=== PATIENT | male | born 1950 | race Caucasian/White ===

== ENCOUNTER 2022-04-30 11:20 | Emergency (ER) | payer OTHER ==
--- OUTSIDE RECORDS SUMMARY | 2022-04-30 11:34 | XMS REPORT | Clinical Summary ---
:1950 Author Organization [facility] MD [place] [facility] Address [address] [place] [address] Care Team Providers Name Role Phone Mateo Escalona MD Unavailable [phone] Pa Jaffe MD Primary Care Provider Allergies Active Allergy Reactions Severity Noted Date Comments Adhesive Other (See Comments) 02/03/2017 Rash wi th latex adhesives but OK with latex g loves. Medications Medication Sig Dispensed Refills Start Date End Date Status omeprazole (PriLOSEC) 20 Take 20 mg by 0 Active mg capsule mouth daily. omega-3 fatty acids 1,000 Take 1,000 0 Active mg cap Units by mouth daily. losartan (COZAAR) 100 mg Take 100 mg by 0 12/09/2016 Active tablet mouth daily. hydroCHLOROthiazide Take 25 mg by 0 12/05/2016 Active (HYDRODIURIL) 25 mg tablet mouth daily. gemfibrozil (LOPID) 600 mg Take 600 mg by 0 03/16/19 20 Active tablet mouth daily. cetirizine (ZyrTEC) 10 mg Take 10 mg by 0 Active tablet mouth daily. carvedilol (COREG) 6.25 mg Take 6.25 mg 0 01/17/2017 Active tablet by mouth twice daily. atorvastatin (LIPITOR) 40 Take 40 mg by 0 12/30/2016 Active mg tablet mouth daily. aspirin 81 mg chewable Chew 81 mg 0 Active tablet daily. b complex vitamins tablet Take 1 tablet 0 Active by mouth daily. blood-glucose meter Use to check 1 each 1 05/22/2019 Active kitIndications: Diabetes blood glucose mellitus without mention as directed. 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 Additional Information Patient not taking. Reason: No longer taking, Reported on 09/01/2021 HYDROcodone-acetaminophen ([place]) Take 1 tablet by 45 tablet 0 02/15/2020 Active 10 mg-325 mg per mouth every 6 tabletIndications: Giant cell (six) hours as tumor of long bone of upper limb needed for moderate pain or severe pain. cyclobenzaprine (FLEXERIL) 10 mg 0 021 Active tablet traMADol (ULTRAM) 50 mg tablet Take 50 mg by 0 05/06 Active mouth. metFORMIN (GLUCOPHAGE-XR) 500 mg Take 2 tablets 360 tablet 3 0 05/27/2020 Active 24 hr tabletIndications: Diabetes (1,000 mg) by mellitus without mention of mouth 2 (two) complication, type II or times a day with unspecified type, uncontrolled meals. glipiZIDE (GLUCOTROL) 5 mg 24 hr 0 021 Active tablet blood sugar diagnostic (Contour USE TO CHECK 100 strip 10/16 Active Next Test Strips) strpIndications: BLOOD GLUCOSE TWO Diabetes mellitus without mention TIMES A DAY of complication, type II or BEFORE YOUR 2 unspecified type, uncontrolled LARGEST MEALS lancets (Microlet Lancet) USE TO CHECK 100 each 10/16/2020 Active miscIndications: Diabetes mellitus BLOOD GLUCOSE TWO without mention of complication, TIMES A DAY type II or unspecified type, BEFORE YOUR 2 uncontrolled LARGEST MEALS traMADol (ULTRAM) 50 mg Take 1 tablet (50 30 tablet 0 04/09/19 22 Active tabletIndications: Fracture of mg) by mouth distal end of right radius every 4 (four) <Closed; Initial> hours as needed for moderate pain or severe pain. HYDROcodone-acetaminophen ([place]) Take 1 tablet by 60 tablet 0 04/09/2021 Active 10 mg-325 mg per mouth every 6 tabletIndications: Giant cell (six) hours as tumor of long bone of upper limb needed for moderate pain or severe pain. co-enzyme Q-10 30 mg capsule Take 30 mg by 0 Active mouth daily. gabapentin (NEURONTIN) 600 mg Take 600 mg by 0 11/13 Active tablet mouth twice daily. 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 01/08 Overview: Added automatically from request for stefani franco [id number] Hypertension 05/22/2019 Abnormal finding on diagnostic imaging of arm 05/11/19 20 Other acute postoperative pain Encounters Date Type Specialty Care Team Description 12/15/2021 Office Visit Orthopaedics Pa Jaffe MD Benign neopl asm of long bone of right u pper limb 12/15/2021 Ancillary Procedure Radiology Pa Jaffe MD Benig n neoplasm of long bone of right u pper limb 12/15/2021 Travel 09/01/2021 Office Visit Orthopaedics Pa Jaffe MD Benign neopl asm of long bone of right u pper limb 09/01/2021 Ancillary Procedure Radiology Pa Jaffe MD Benig n neoplasm of long bone of right u pper limb 09/01/2021 Travel 06/02/2021 Office Visit Orthopaedics Pa Jaffe MD Benign neopl asm of long bone of right u pper limb 06/02/2021 Ancillary Procedure Radiology Mateo Marquez Beni gn neoplasm of long PA bone of right u pper limb 06/02/2021 Travel 05/01/2021 Telephone Orthopaedics Mateo Marquez PA after 04/30/2021 Surgical History Surgery Date Site/Laterality Comments APPENDECTOMY 03/07/2019 - 03/06/2020 COLONOSCOPY 03/07/2011 - 03/06/2012 HERNIA REPAIR 03/07/1953 - [birth year]06/1953 HIP ARTHROPLASTY 03/07/2006 - 03/06/2007 KNEE ARTHROPLASTY 03/07/2011 - 03/06/2012 CARDIAC CATHETERIZATION 03/07/2007 - 03/06/2008 DC RADICAL RESECTION TUMOR 02/06/2020 Arm Upper/Right Proce dure: RADICAL RADIUS OR ULNA RESECTION OF MATT OR, DISTAL RADIUS WI TH DISTAL RADIUS AL LOGRAFT RECONSTRUCTION; Surgeon: Pa Jaffe MD; Location: MAIN [facility]; Service: [facility] Medical devices from this surgery are in the Medical Devices section. DC FLUOROSCOPY UP TO 1 HOUR 02/06/2020 Arm Upper/Right Proc edure: PORTABLE PHYSICIAN/QHP TIME FLOUROSCOPY ( C-ARM); Surgeon: Pa loya MD; Location: MAIN O R; Service: [facility]COLOGY Medical devices from this surgery are in the Medical Devices section. JOINT REPLACEMENT Right hip JOINT REPLACEMENT Left knee DC REMOVAL IMPLANT DEEP 04/08/2021 Arm Lower/Right Procedur e: REMOVAL OF IMPLANT; DEEP, R IGHT DISTAL RADIUS PL ATE; Surgeon: Pa loya MD; Location: MAIN O R; Service: [facility]COL[facility] Medical devices from this surgery are in the Medical Devices section. DC OPEN TREATMENT RADIAL 04/08/2021 Arm Lower/Right Procedu re: OPEN SHAFT FRACTURE REDUCTION OF FRA CTURE OF SHAFT OF RADIUS, INCLUDES INTERNA L FIXATION, WHEN PERFORMED- PLATI NG OF RIGHT DISTAL RAD IUS- BONE GRAFTING OF NON-UNION OF RAD IUS; Surgeon: Pa loya MD; Location: MAIN O R; Service: [facility]COL[facility]Y Medical devices from this surgery are in the Medical Devices section. DC FLUOROSCOPY UP TO 1 HOUR 04/08/2021 Arm Lower/Right Proc edure: PORTABLE PHYSICIAN/QHP TIME FLOUROSCOPY ( C-ARM); Surgeon: Pa loya MD; Location: MAIN O R; Service: [facility]COL[facility]Y Medical devices from this surgery are in the Medical Devices section. 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 01/09/2020 Type 2 diabetes mellitus Family History Medical History Relation Name Comments Stroke Mother Coronary artery disease Neg Hx Diabetes Neg Hx Heart disease Neg Hx Heart failure Neg Hx Relation Name Status Comments Mother Social History Tobacco Use Types Packs/Day Years Used Date Smoking Tobacco: Former Cigarettes 1 10 Quit : 1999 Smokeless Tobacco: Former Qu it: 12/24/2008 Alcohol Use Standard Drinks/Week Comments Yes 51 (1 standard drink = 0.6 oz pure alcoh ol) HAS ABOUT 5 DRINKS PER DAY Sex Assigned at Date Recorded Not on file Job Start Date Occupation Industry Not on file Not on file Not on file Obstetrics History Last Filed Vital Signs Vital Sign Reading Time Taken Comments Blood Pressure 147/68 12/15/2021 10:11 AM CDT Pulse 58 12/15/2021 10:11 AM CDT Temperature 37 C (98.6 F) 12/15/2021 10:11 AM CDT Respiratory Rate 20 12/15/2021 10:11 AM CDT Oxygen Saturation 97% 09/01/2021 9:29 AM CDT Inhaled Oxygen Concentration - - Weight 134.6 kg (296 lb 11.8 oz) 12/15/2021 10:11 AM CDT Height - - Body Mass Index 42.01 04/08/2021 9:52 PM [employer] Plan of Treatment Date Type Specialty Care Team Description 05/18/2022 Ancillary Procedure Radiology Pa Jaffe MD [address] [place], [place] [address] (Wo rk) 05/18/2022 Ancillary Procedure Radiology Pa Jaffe MD [address] [place], [place] [address] (Wo rk) 05/18/2022 Follow-Up Orthopaedics Pa Jaffe MD [address] [place], [place] [address] (Wo rk) Health Maintenance Due Date Last Done Comments COVID-19 Vaccination (3 - Booster for 07/05/2020 05/10/2020 , 04/12/2020 Moderna series) Medical Devices Implanted Type Area Gas Refrigerator Servicer Device Shelf Model / Serial Identifier Expiration / Lot Date Screw 18mm Bn 3.5mm 2.9mm T15 - [id number] Implant Right: DEPUY S YNTHES [id number] / Implanted: Qty: 1 on 02/06/2020 by Pa Jaffe MD at [facility] voxapp / NA Synthes 3.5mm Lcp Metaphyseal Plte 14h 190mm Implant Right: SYNTH [employer] [place] [id number] / Implanted: Qty: 1 on 04/08/2021 by Pa Jaffe MD at [facility] Arm / Screw Sm Frag Toi Ss 3.5mm X 24mm - [id number] Metalware Right: SY NTHES [employer] 204.824 / Implanted: Qty: 1 on 02/06/2020 by Pa Jaffe MD at [facility] Arm / Plate Lcp 6 Holes - [id number] Metalware Right: [employer] [place] 223.561 / Implanted: Qty: 1 on 04/08/2021 by Pa Jaffe MD at [facility] Arm / NA Mtf Radius Distal Right Oa Tissue Right: MUSCULOSKELETAL 04/18/2023 [id number] / Implanted: Qty: 1 on 02/06/2020 by Pa Jaffe MD at [facility] Arm TRANSPLANT FND [id number] / Description: [employer] Radius Distal Right OA Metal Left: Knee Procedures Procedure Name Priority Date/Time Associated Diagnosis Comme nts XR FOREARM 2 VW Routine 12/15/2021 10:19 AM Benign neoplasm of Results for this RIGHT CDT long bone of right procedure are in upper limb the results section. XR FOREARM 2 VW Routine 09/01/2021 9:27 AM Benign neoplasm of Results for this RIGHT CDT long bone of right procedure are in upper limb the results section. XR WRIST 3 VWS Routine 06/02/2021 12:31 PM Benign neoplasm of Results for this MINIMUM RIGHT CDT long bone of right procedur e are in upper limb the results section. after 04/30/2021 Results X-ray Forearm 2 Views Right (12/15/2021 10:19 AM CDT)Only the most recent of2 resultswithin the time period is included. Anatomical Region Laterality Modality Forearm, Extremity Digital Radiography Specimen (Source) Anatomical Collection Method Collection Time Re ceived Time Location / / Volume Laterality 12/15/2021 10:29 AM CDT Impressions 12/15/2021 10:35 AM CDT Expected appearance of right forearm fol lowing revision of intercalated allograft construction. No complication. Narrative 12/15/2021 10:35 AM CDT FULL RESULT: Examination: XR FOREARM 2 VW RIGHT, 12/05 10:19 AM. Clinical History: 71-year-old man with a distal right radial giant cell tumor treated with resection and osteoarticular allograft reconstruction February 06, 2020. Subsequent fracture of the compression plate April 07, 2021 with revision. Th e revision included refreshing the [place] bone/allograft junction by removing some bone, creating a distal ulnar osteotomy for appropriate accommodation forearm l ength, and placement of two compression plates, one plate dorsally from the mid radius, across the allograft, and terminating along the third metacarpal. The other plate is along the lateral side of the radius, bridging the [place] bone/allogr aft junction. Indication: evaluate R distal radius all ograft healing Comparison: Right forearm September 01, 2021 Technique: XR FOREARM 2 VW RIGHT Findings: 1. Status post revision of distal radial intercalated allograft reconstruction. See above history. 2. Tight junctions between the radial na tive bone and the allograft is maintained. 3. The metal plates are in expected posi tion and without complication. Procedure Note Varghese Ruiz Jr., MD - 12/15/2021F ormatting of this note might be different from the original. FULL RESULT: Examination: XR FOREARM 2 VW RIGHT, 12/05 10:19 AM. Clinical History: 71-year-old man with a distal right radial giant cell tumor treated with resection and osteoarticular allograft reconstruction February 06, 2020. Subsequent fracture of the compression plate April 07, 2021 with revision. The revision include d refreshing the [place] bone/allograft junction by removing some bone, creating a distal ulnar osteotomy for appropriate accommodation forearm length, and placement of two compression plates, one plate dorsal ly from the mid radius, across the allograft, and terminating along the third metacarpal. The other plate is along the lateral side of the radius, bridging the [place] bone/allograft junction. Indication: evaluate R distal radius all ograft healing Comparison: Right forearm September 01, 2021 Technique: XR FOREARM 2 VW RIGHT Findings: 1. Status post revision of distal radial intercalated allograft reconstruction. See above history. 2. Tight junctions between the radial na tive bone and the allograft is maintained. 3. The metal plates are in expected posi tion and without complication. IMPRESSION: Expected appearance of right forearm fol lowing revision of intercalated allograft construction. No complication. Pa Jaffe MD IM DIAGNOSTIC IMAGING ORDER ÁNGEL X-ray Wrist 3 Views Minimum Right (06/02/2021 12:31 PM CDT) Anatomical Region Laterality Modality Wrist, Extremity Digital Radiography Specimen (Source) Anatomical Collection Method Collection Time Re ceived Time Location / / Volume Laterality 06/02/2021 12:34 PM CDT Impressions 06/02/2021 12:37 PM CDT Interval stable revision of right wrist fixation. Interval stable oblique fracture of distal radius. Oblique distal ulna fracture without spe cific findings of early fracture bridging. Narrative 06/02/2021 12:37 PM CDT FULL RESULT: Examination: XR WRIST 3 VWS MINIMUM R[facility] T, 06/02/2021 12:31 PM. Clinical History: Giant cell tumor dista l radius. Indication: Restaging Disease Progressio n Comparison: 04/08/2021. Technique: Right wrist 3 views. Findings: Interval stable revision of th e dorsal plate fixation across the wrist joint is well as lateral plating of the distal radius unchanged.. Oblique distal radius fracture is stable with slight fo reshortening demonstrated suggesting of slight distraction of the fracture fragments distally with slight ulnar/lateral offset of the distal ulna fragment relative to the proximal radius demonstrated.. Distal radioulnar joint appears intact. Chronic degenerative changes identified at the carpal bones unchanged. No acute mechanical failure or displacement of fixation detected. Procedure Note Jose Luis Sands MD - 06/02/2021Forma tting of this note might be different from the original. FULL RESULT: Examination: XR WRIST 3 VWS MINIMUM [facility] T, 06/02/2021 12:31 PM. Clinical History: Giant cell tumor dista l radius. Indication: Restaging Disease Progressio n Comparison: 04/08/2021. Technique: Right wrist 3 views. Findings: Interval stable revision of th e dorsal plate fixation across the wrist joint is well as lateral plating of the distal radius unchanged.. Oblique distal radius fracture is stable with slight foreshortening demonstrated suggesting of slight distra ction of the fracture fragments distally with slight ulnar/lateral offset of the distal ulna fragment relative to the proximal radius demonstrated.. Distal radioulnar joint appears intact. Chronic degenerative brianne nges identified at the carpal bones unchanged. No acute mechanical failure or displacement of fixation detected. IMPRESSION: Interval stable revision of right wrist fixation. Interval stable oblique fracture of distal radius. Oblique distal ulna fracture without spe cific findings of early fracture bridging. Mateo ARTEAGA IMS[facility] DIAGNOSTIC IMAGING ORDER ÁNGEL after 04/30/2021 Additional Health Concerns Infection Onset Date Last Indicated Confirmed COVID-19 Comment: Pt called today 04/09/22 to 02/0 05/202204/09/2022 reschedule as he tested positive 3 days ago Insurance Payer Benefit Plan / Subscriber ID Effective Dates Phone Addre ss Type Group MEDICARE MEDICARE PART [id number] 2016-Prese [phone] NOVITA S Medicare A AND B nt 2 [employer]UT[employer] [address] [place] [id number] GENERIC GENERIC [id number] 2016-Prese [phone] [id number] PPO MEDICARE nt [address] [place] [id number] Advance Directives Code Status Date Activated Date Inactivated Comments Full Code 04/08/2021 9:57 PM 04/09/2021 3:08 PM Code Status Date Activated Date Inactivated Comments Full Code 02/06/2020 11:26 AM 02/07/2020 3:02 PM Care Teams Surveying Crew Rodman Relationship Specialty Start Date End Date Mateo Escalona PCP - External Referring Orthopedic Surgery 04/27/19 MD [facility] [address] [place] [id number] Pa Jaffe MD PCP - General Orthopedic Surgery 04/30/[address] [place] [id number]
--- OUTSIDE RECORDS SUMMARY | 2022-04-30 11:35 | XMS REPORT | Continuity of Care Document ---
:1950 Author Organization [facility] t Address [address] [place] [address] Care Team Providers Name Role Phone [id number] Primary Care Physician Unavailable SYSTEM, PROVIDER NOT IN Attending Clinician Unavailable HUDSON JUARES Attending Clinician Unavailable HUDSON JUARES Attending Clinician Unavailable CRYS VILLALOBOS Attending Clinician Unavailable Margaux Andrade MD Attending Clinician [phone] Hudson Juares MD Attending Clinician MERE CHO Attending Clinician Unavailable Mere Cho MD Attending Clinician THI SANDS Attending Clinician Unavailable THI SANDS Attending Clinician Unavailable Hannah Frost Attending Clinician Pa Jaffe MD Attending Clinician PA JAFFE Attending Clinician Unavailable SHABANA HEARD Attending Clinician Unavailable MARGAUX ANDRADE Attending Clinician Unavailable Nurse, [facility] Attending Clinician Unavailable Hudson Miranda MD Attending Clinician HUDSON MIRANDA Attending Clinician Unavailable Doctor Unassigned, [place] Attending Clinician Unavailable 2, [facility] Attending Clinician Unavailable Hudson Young Attending Clinician ROORDA, HUDSON S Attending Clinician Unavailable REBECCA JEREZ Attending Clinician Unavailable SUNSHINE RUIZ Attending Clinician Unavailable DELIO GOLD Attending Clinician Unavailable Chelsea Malone DO Attending Clinician Malou Pascal S Attending Clinician MALOU GONZALEZ S Attending Clinician Unavailable NAGA JEFFEYR Attending Clinician Unavailable NESS ABBOTT Attending Clinician Unavailable HWITNEY ADAM Attending Clinician Unavailable Whitney Adam MD Attending Clinician Norma Huggins RN Attending Clinician Unavailable BENJI DHALIWAL Attending Clinician Unavailable Salvador Angeles MD Attending Clinician Benji Dhaliwal MD Attending Clinician HANNAH NAIR Admitting Clinician Unavailable HUDSON JUARES Admitting Clinician Unavailable PA JAFFE Admitting Clinician Unavailable BENJI DHALIWAL Admitting Clinician Unavailable Benji Dhaliwal MD Admitting Clinician Payers Payer Name Policy Type Policy Number Effective Date Expiration Date S [facility] [place] MEDICARE PART A \T\ [id number] 2016 B 00:00:00 COMMERCIAL [id number] 2021 NON-CONTRACT 00:00:00 GENERIC Problems Condition Condition Condition Status Onset Resolution Last Treating Co mments Source Name Details Category Date Date Treatment Clinician Date 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: [place] bone of bone of Medical right right Branch upper upper extremity extremity Type 2 Type 2 Disease Active Univers diabetes diabetes 09-25 ity of mellitus mellitus 00:00: [place] without without 00 Medical complicati complicati Br anch on, on, without without long-term long-term current current use of use of insulin insulin Type 2 Type 2 Disease Active 2019-03 Univers diabetes diabetes 2 ity of mellitus mellitus 00:00: [place] in obese in obese 00 MD [facility] Obesity Obesity Disease Active 2019-03 Univers 2-02 ity of 00:00: [place] 00 MD [facility] Gastric Gastric Disease Active 2019-03 Univers reflux reflux 04-08 ity of 00:00: [place] 00 MD [facility] Benign Benign Disease Active 2019-03 Overview: Univer s neoplasm neoplasm 03-10 Formattin ity of of long of long 00:00: g of this [place] bone of bone of note MD right right might be Anders upper limb upper limb different n from the Cancer original. 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, rhinitis, 17 ity of unspecifie unspecifie 00:[place] 00 Medical chronicity chronicity Br anch , , unspecifie unspecifie d d seasonalit seasonalit y, y, unspecifie unspecifie d trigger d trigger OLIVIA on OLIVIA on Disease Active 2016-03 Univers CPAP CPAP 2-17 ity of 00:00: [place] 00 Medical Branch GERD GERD Disease Active Univers (gastroeso (gastroeso it y of phageal phageal [place] reflux reflux Medical disease) disease) Branch Other Other Disease Active [facility] acute acute [place] of postoperat [place]operat [place] mike pain mike pain MD [facility] Allergies, Adverse Reactions, Alerts Allergy Allergy Status Severity Reaction(s) Onset Inactive Treating Comm ents Source Name Type Date Date Clinician LATEX DRUG Active Rash 0 Univers INGREDI 2-15 ity of 00:00: [place] 00 Medical Branch Latex Propensi Active Rash 20200 Univers ty to 2-15 ity of adverse 00:00: [place] reaction 00 Medical s Branch ADHESIVE Drug Active Other-Cmnt 2016-03 Univ ers Class 1-30 ity of 00:00: [place] 00 Medical Branch ADHESIVE Drug Active Other 2016-03 MD Class 1-30 Anderso 00:00: n 00 ADHESIVE Drug Active Other 2016-03 MD Class 1-30 Anderso 00:00: n 00 ADHESIVE Drug Active Other 2016-03 MD Class 1-30 Anderso 00:00: n 00 ADHESIVE Drug Active Other 2016-03 MD Class 1-30 Anderso 00:00: n 00 ADHESIVE Drug Active Other 2016-03 MD Class 1-30 Anderso 00:00: n 00 ADHESIVE Drug Active Other 2016-03 MD Class 1-30 Anderso 00:00: n 00 ADHESIVE Drug Active Other 2016-03 MD Class 1-30 Anderso 00:00: n 00 ADHESIVE Drug Active Other 2016-03 MD Class 1-30 Anderso 00:00: n 00 ADHESIVE Drug Active Other 2016-03 MD Class 1-30 Anderso 00:00: n 00 ADHESIVE Drug Active Other 2016-03 MD Class 1-30 Anderso 00:00: n 00 ADHESIVE Drug Active Other 2016-03 MD Class 1-30 Anderso 00:00: n 00 ADHESIVE Drug Active Other 2016-03 MD Class 1-30 Anderso 00:00: n 00 Adhesive Propensi Active Other (See 2016-03 Rash with Univers ty to Comments) 1-30 latex ity of adverse 00:00: adhesives [place] reaction 00 but OK s with Anderso latex n gloves. [facility] Family History Family Member Diagnosis Comments Start Date Stop Date Source Natural mother Stroke [facility] MD Ewing Canemile r [place] Social History Social Habit Start Date Stop Date Quantity Comments Source History [facility] o f Alcohol Frequency [facility] edical Branch History [facility] University o f Alcohol Std Drinks [facility] History [facility] o f Alcohol Binge [facility] al Branch Exposure to 2022-02-12 2022-02-22 Not sure University of SARS-CoV-2 (event) 00:00:00 16:05:00 [facility] Alcohol intake 2021-04-10 2021-04-10 Current drinker Unive rsity of 00:00:00 00:00:00 of alcohol Stephany valenzuela (finding) [facility] Cigarettes smoked 2020-02-05 2020-02-05 Univers ity of current (pack per 00:00:00 00:00:00 [facility] ) - Reported Cancer Ce nter Cigarette 2020-02-05 2020-02-05 University of pack-years 00:00:00 00:00:00 Stephany valenzuela [facility] Tobacco use and 2020-02-05 2020-02-05 Former smokeless Uni versity of exposure 00:00:00 00:00:00 tobacco user Stephany Lao [facility] Alcohol Comment 2020-02-05 2020-02-05 HAS ABOUT 5 Universi ty of 00:00:00 00:00:00 DRINKS PER DAY Stephany peñaloza [facility] History of tobacco 1997-01-30 Snuff User Univer sity of use 00:00:00 [facility] Sex [birth year] Universit y of 00:00:00 00:00:00 Stephany valenzuela [facility] Smoking Status Start Date Stop Date Source Ex-smoker 2022-02-16 00:00:00 2022-02-16 00:00:00 Universi ty of [facility] Medications Ordered Filled Start Stop Current Ordering Indication Dosage Frequency Signature Comments Components Source Medication Medication Date Date Medication? Clinician (SIG) Name Name rishi Yes [id number] 3{tbl} Take 3 Univers r-ritonavir 1-31 tablets by it y of (PAXLOVID, 00:00: mouth in [place] EUA,) 300 00 the Medical mg (150 mg morning Branch x 2)-100 mg and 3 tablet tablets in the evening. gabapentin 2021-03 Yes [id number] 900mg Take 1.5 Univers 600 mg 2-19 tablets by ity of tablet 00:00: mouth in [place] 00 the Medical morning Branch and 1.5 tablets at noon and 1.5 tablets in the evening. gabapentin 2021-03 Yes [id number] 900mg Take 1.5 Univers 600 mg 2-19 tablets by ity of tablet 00:00: mouth in [place] 00 the Medical morning Branch and 1.5 tablets at noon and 1.5 tablets in the evening. gabapentin 2021-03 Yes [id number] 900mg Take 1.5 Univers 600 mg 2-19 tablets by ity of tablet 00:00: mouth in [place] 00 the Medical morning Branch and 1.5 tablets at noon and 1.5 tablets in the evening. tadalafiL 2021-03 Yes [id number] 10mg Take 1 U nivers 10 mg 2-13 tablet by ity of tablet 00:00: mouth [place] 00 needed for Medical Erectile Branch dysfunctio n. Take 30 minutes prior to sexual intercours e tadalafiL 2021-03 Yes [id number] 10mg Take 1 U nivers 10 mg 2-13 tablet by ity of tablet 00:00: mouth [place] 00 needed for Medical Erectile Branch dysfunctio n. Take 30 minutes prior to sexual intercours e tadalafiL 2021-03 Yes [id number] 10mg Take 1 U nivers 10 mg 2-13 tablet by ity of tablet 00:00: mouth [place] 00 needed for Medical Erectile Branch dysfunctio n. Take 30 minutes prior to sexual intercours e tadalafiL 2021-03 Yes [id number] 10mg Take 1 U nivers 10 mg 2-13 tablet by ity of tablet 00:00: mouth as [place] 00 needed for Medical Erectile Branch dysfunctio n. Take 30 minutes prior to sexual intercours e tadalafiL 2021-03 Yes [id number] 10mg Take 1 U nivers 10 mg 2-13 tablet by ity of tablet 00:00: mouth as [place] 00 needed for Medical Erectile Branch dysfunctio n. Take 30 minutes prior to sexual intercours e tadalafiL 2021-03 Yes [id number] 10mg Take 1 U nivers 10 mg 2-13 tablet by ity of tablet 00:00: mouth [place] 00 needed for Medical Erectile Branch dysfunctio n. Take 30 minutes prior to sexual intercours e tadalafiL 2021-03 Yes [id number] 10mg Take 1 U nivers 10 mg 2-13 tablet by ity of tablet 00:00: [place] 00 needed for Medical Erectile Branch dysfunctio n. Take 30 minutes prior to sexual intercours e gabapentin 2021-03 Yes [id number] TAKE ONE Univers 600 mg 1-28 TABLET BY ity of tablet 00:00: MOUTH [place] 00 EVERY Medical MORNING, Branch TAKE ONE TABLET BY MOUTH DAILY AT NOON , AND TAKE ONE TABLET BY MOUTH EVERY EVENING gabapentin 2021-03 Yes [id number] TAKE ONE Univers 600 mg 1-28 TABLET BY ity of tablet 00:00: MOUTH [place] 00 EVERY Medical MORNING, Branch TAKE ONE TABLET BY MOUTH DAILY AT NOON , AND TAKE ONE TABLET BY MOUTH EVERY EVENING gabapentin 2021-03 Yes [id number] TAKE ONE Univers 600 mg 1-28 TABLET BY ity of tablet 00:00: MOUTH [place] 00 EVERY Medical MORNING, Branch TAKE ONE TABLET BY MOUTH DAILY AT NOON , AND TAKE ONE TABLET BY MOUTH EVERY EVENING gabapentin 2021-03 Yes [id number] TAKE ONE Univers 600 mg 1-28 TABLET BY ity of tablet 00:00: MOUTH [place] 00 EVERY Medical MORNING, Branch TAKE ONE TABLET BY MOUTH DAILY AT NOON , AND TAKE ONE TABLET BY MOUTH EVERY EVENING gabapentin 2021-03 Yes [id number] TAKE ONE Univers 600 mg 1-28 TABLET BY ity of tablet 00:00: MOUTH [place] 00 EVERY Medical MORNING, Branch TAKE ONE TABLET BY MOUTH DAILY AT NOON , AND TAKE ONE TABLET BY MOUTH EVERY EVENING gabapentin 2021-03- No [id number] TAKE ONE Univers 600 mg 1-28 12-19 TABLET BY ity of tablet 00:00: 00:00 MOUTH [place] 00 :00 EVERY Medical MORNING, Branch TAKE ONE TABLET BY MOUTH DAILY AT NOON , AND TAKE ONE TABLET BY MOUTH EVERY EVENING gabapentin 2021-03- No [id number] TAKE ONE Univers 600 mg 1-28 12-19 TABLET BY ity of tablet 00:00: 00:00 MOUTH [place] 00 :00 EVERY Medical MORNING, Branch TAKE ONE TABLET BY MOUTH DAILY AT NOON , AND TAKE ONE TABLET BY MOUTH EVERY EVENING gabapentin 2022-0 Yes [id number] 600mg Take 1 Univers 600 mg 9-09 tablet by ity of tablet 00:00: mouth in [place] 00 the Medical morning Branch and 1 tablet at noon and 1 tablet in the evening. gabapentin 2022-0 Yes [id number] 600mg Take 1 Univers 600 mg 9- tablet by ity of tablet 00:00: mouth in [place] 00 the Medical morning Branch and 1 tablet at noon and 1 tablet in the evening. gabapentin 2021-0 Yes 600mg Take 600 Un natalie (NEURONTIN) 9-09 mg by ity of 600 mg 00:00: mouth [place] tablet 00 twice MD daily. [facility] gabapentin 2021-0 2022- No [id number] 600mg Take 1 Univers 600 mg 9-11 15- tablet by ity of tablet 00:00: 00:00 mouth in [place] 00 :00 the Medical morning Branch and 1 tablet at noon and 1 tablet in the evening. gabapentin 2021-0 2022- No [id number] 300mg Take 1 Univers 300 mg 811-13 capsule by ity of capsule 00:00: 00:00 mouth in [place] 00 :00 the Medical morning Branch and 1 capsule at noon and 1 capsule in the evening. gabapentin 2021-0 2022- No [id number] 300mg Take 1 Univers 300 mg -03 12- capsule by ity of capsule 00:00: 00:00 mouth in [place] 00 :00 the Medical morning Branch and 1 capsule at noon and 1 capsule in the evening. omeprazole 2021-0 Yes 20mg Take 20 mg U nivers (PriLOSEC) 6-28 by mouth ity o f 20 mg 09:48: daily. [place] capsule 39 MD Pedroza [facility] omega-3 2021-0 Yes 1000U Take 1,000 Uni vers fatty acids 6-28 Units by ity of 1,000 mg 09:48: mouth [place] cap 39 daily. MD Kasia fairbanks [facility] cetirizine 2021-0 Yes 10mg Take 10 mg U nivers (ZyrTEC) 10 6-28 by mouth ity of mg tablet 09:48: daily. [place] 39 MD Kasia fairbanks [facility] aspirin 81 2021-0 Yes 81mg Chew 81 mg U nivers mg chewable 6-28 daily. ity of tablet 09:48: [place] 39 MD Kasia fairbanks [facility] b complex 0 Yes 1{tbl} Take 1 Univ ers vitamins 6-28 tablet by ity of tablet 09:48: mouth [place] 39 daily. MD Kasia fairbanks [facility] co-enzyme 0 Yes 30mg Take 30 mg Un natalie Q-10 30 mg 6-28 by mouth ity o f capsule 09:48: daily. 39 MD Kasia fairbanks [facility] ascorbic 0 Yes Take by Univer s acid 6-14 mouth. ity of (VITAMIN C 11:05: [place] ORAL) Medical Branch ergocalcife Yes Take by Uni vers rol, 6-14 mouth. ity of vitamin D2, 11:05: [place] (VITAMIN D 48 Medical ORAL) Branch ZINC ORAL Yes Take by Unive rs 6-14 mouth. ity of 11:05: [place] [address] Medical Branch ascorbic 0 Yes Take by Univer s acid 6-14 mouth. ity of (VITAMIN C 11:05: [place] ORAL) Medical Branch ergocalcife Yes Take by Uni vers rol, 6-14 mouth. ity of vitamin D2, 11:05: [place] (VITAMIN D 48 Medical ORAL) Branch ZINC ORAL 0 Yes Take by Unive rs 6-14 mouth. ity of 11:05: [place] [address] Medical Branch ascorbic 0 Yes Take by Univer s acid 6-14 mouth. ity of (VITAMIN C 11:05: [place] ORAL) Medical Branch ergocalcife Yes Take by Uni vers rol, 6-14 mouth. ity of vitamin D2, 11:05: [place] (VITAMIN D 48 Medical ORAL) Branch ZINC ORAL 0 Yes Take by Unive rs 6-14 mouth. ity of 11:05: [place] [address] Medical Branch ascorbic 0 Yes Take by Univer s acid 6-14 mouth. ity of (VITAMIN C 11:05: [place] ORAL) Medical Branch ergocalcife 0 Yes Take by Uni vers rol, 6-14 mouth. ity of vitamin D2, 11:05: [place] (VITAMIN D 48 Medical ORAL) Branch ZINC ORAL 0 Yes Take by Unive rs 6-14 mouth. ity of 11:05: [place] [address] Medical Branch ascorbic 2021-0 Yes Take by Univer s acid 6-14 mouth. ity of (VITAMIN C 11:05: [place] ORAL) Medical Branch ergocalcife 0 Yes Take by Uni vers rol, 6-14 mouth. ity of vitamin D2, 11:05: [place] (VITAMIN D 48 Medical ORAL) Branch ZINC ORAL 0 Yes Take by Unive rs 6-14 mouth. ity of 11:05: [place] [address] Medical Branch ascorbic 0 Yes Take by Univer s acid 6-14 mouth. ity of (VITAMIN C 11:05: [place] ORAL) Medical Branch ergocalcife 0 Yes Take by Uni vers rol, 6-14 mouth. ity of vitamin D2, 11:05: [place] (VITAMIN D 48 Medical ORAL) Branch ZINC ORAL 0 Yes Take by Unive rs 6-14 mouth. ity of 11:05: [place] [address] Medical Branch ascorbic 0 Yes Take by Univer s acid 6-14 mouth. ity of (VITAMIN C 11:05: [place] ORAL) Medical Branch ergocalcife 0 Yes Take by Uni vers rol, 6-14 mouth. ity of vitamin D2, 11:05: [place] (VITAMIN D 48 Medical ORAL) Branch ZINC ORAL 0 Yes Take by Unive rs 6-14 mouth. ity of 11:05: [place] [address] Medical Branch ascorbic 0 Yes Take by Univer s acid 6-14 mouth. ity of (VITAMIN C 11:05: [place] ORAL) Medical Branch ergocalcife 0 Yes Take by Uni vers rol, 6-14 mouth. ity of vitamin D2, 11:05: [place] (VITAMIN D 48 Medical ORAL) Branch ZINC ORAL 2021-0 Yes Take by Unive rs 6-14 mouth. ity of 11:05: [place] [address] Medical Branch ascorbic 2021-0 Yes Take by Univer s acid 6-14 mouth. ity of (VITAMIN C 11:05: [place] ORAL) Medical Branch ergocalcife 0 Yes Take by Uni vers rol, 6-14 mouth. ity of vitamin D2, 11:05: [place] (VITAMIN D 48 Medical ORAL) Branch ZINC ORAL 2021-0 Yes Take by Unive rs 6-14 mouth. ity of 11:05: [place] [address] Medical Branch ascorbic 0 Yes Take by Univer s acid 6-14 mouth. ity of (VITAMIN C 11:05: [place] ORAL) Medical Branch ergocalcife 0 Yes Take by Uni vers rol, 6-14 mouth. ity of vitamin D2, 11:05: [place] (VITAMIN D 48 Medical ORAL) Branch ZINC ORAL 0 Yes Take by Unive rs 6-14 mouth. ity of 11:05: [place] [address] Medical Branch ascorbic 0 Yes Take by Univer s acid 6-14 mouth. ity of (VITAMIN C 11:05: [place] ORAL) Medical Branch ergocalcife 0 Yes Take by Uni vers rol, 6-14 mouth. ity of vitamin D2, 11:05: [place] (VITAMIN D 48 Medical ORAL) Branch ZINC ORAL 0 Yes Take by Unive rs 6-14 mouth. ity of 11:05: [address] Branch aspirin 81 0 Yes 81mg Take 81 mg U nivers mg chewable 6-14 by mouth ity of tablet 11:05: daily. [address] Branch omeprazole 0 Yes 20mg Take 20 mg U nivers 20 mg 6-14 by mouth ity of capsule 11:05: daily. [address] Branch cetirizine 0 Yes 10mg Take 10 mg U nivers (ZYRTEC) 10 6-14 by mouth ity of mg tablet 11:05: daily. [address] vitamin B Yes 1{tbl} Take 1 Univ ers complex (B 6-14 tablet by ity of COMPLEX 11:05: mouth [place] ORAL) 47 daily. Medical Branch Maben-3 0 Yes 1000U Take 1,000 Uni vers Fatty Acids 6-14 Units by ity of (FISH OIL 11:05: mouth [place] CONCENTRATE 47 daily. Medica l ) 1,000 mg Branch Cap aspirin 81 0 Yes 81mg Take 81 mg U nivers mg chewable 6-14 by mouth ity of tablet 11:05: daily. [address] omeprazole 0 Yes 20mg Take 20 mg U nivers 20 mg 6-14 by mouth ity of capsule 11:05: daily. [address] cetirizine 2022-0 Yes 10mg Take 10 mg U nivers (ZYRTEC) 10 6-14 by mouth ity of mg tablet 11:05: daily. [address] vitamin B Yes 1{tbl} Take 1 Univ ers complex (B 6-14 tablet by ity of COMPLEX 11:05: mouth [place] ORAL) 47 daily. Medical Branch Maben-3 Yes 1000U Take 1,000 Uni vers Fatty Acids 6-14 Units by ity of (FISH OIL 11:05: mouth [place] CONCENTRATE 47 daily. Medica l ) 1,000 mg Branch Cap aspirin 81 2021-0 Yes 81mg Take 81 mg U nivers mg chewable 6-14 by mouth ity of tablet 11:05: daily. [address] Branch omeprazole Yes 20mg Take 20 mg U nivers 20 mg 6-14 by mouth ity of capsule 11:05: daily. [address] cetirizine Yes 10mg Take 10 mg U nivers (ZYRTEC) 10 6-14 by mouth ity of mg tablet 11:05: daily. [address] vitamin B Yes 1{tbl} Take 1 Univ ers complex (B 6-14 tablet by ity of COMPLEX 11:05: mouth [place] ORAL) [address] [facility] Branch Maben-3 Yes 1000U Take 1,000 Uni vers Fatty Acids 6-14 Units by ity of (FISH OIL 11:05: mouth [place] CONCENTRATE 47 daily. Medica l ) 1,000 mg Branch Cap aspirin 81 2021-0 Yes 81mg Take 81 mg U nivers mg chewable 6-14 by mouth ity of tablet 11:05: daily. [address] Branch omeprazole Yes 20mg Take 20 mg U nivers 20 mg 6-14 by mouth ity of capsule 11:05: daily. [address] Branch cetirizine Yes 10mg Take 10 mg U nivers (ZYRTEC) 10 6-14 by mouth ity of mg tablet 11:05: daily. [address] vitamin B Yes 1{tbl} Take 1 Univ ers complex (B 6-14 tablet by ity of COMPLEX 11:05: mouth [place] ORAL) 47 daily. Medical Branch Maben-3 2022-0 Yes 1000U Take 1,000 Uni vers Fatty Acids 6-14 Units by ity of (FISH OIL 11:05: mouth [place] CONCENTRATE 47 daily. Medica l ) 1,000 mg Branch Cap aspirin 81 2021-0 Yes 81mg Take 81 mg U nivers mg chewable 6-14 by mouth ity of tablet 11:05: daily. [address] omeprazole 0 Yes 20mg Take 20 mg U nivers 20 mg 6-14 by mouth ity of capsule 11:05: daily. [address] Branch cetirizine 0 Yes 10mg Take 10 mg U nivers (ZYRTEC) 10 6-14 by mouth ity of mg tablet 11:05: daily. [address] vitamin B Yes 1{tbl} Take 1 Univ ers complex (B 6-14 tablet by ity of COMPLEX 11:05: mouth [place] ORAL) [address] [facility] Branch Maben-3 Yes 1000U Take 1,000 Uni vers Fatty Acids 6-14 Units by ity of (FISH OIL 11:05: mouth [place] CONCENTRATE 47 daily. Medica l ) 1,000 mg Branch Cap aspirin 81 2021-0 Yes 81mg Take 81 mg U nivers mg chewable 6-14 by mouth ity of tablet 11:05: daily. [address] omeprazole 0 Yes 20mg Take 20 mg U nivers 20 mg 6-14 by mouth ity of capsule 11:05: daily. [address] cetirizine Yes 10mg Take 10 mg U nivers (ZYRTEC) 10 6-14 by mouth ity of mg tablet 11:05: daily. [address] vitamin B Yes 1{tbl} Take 1 Univ ers complex (B 6-14 tablet by ity of COMPLEX 11:05: mouth [place] ORAL) 47 daily. Medical Branch Maben-3 0 Yes 1000U Take 1,000 Uni vers Fatty Acids 6-14 Units by ity of (FISH OIL 11:05: mouth [place] CONCENTRATE 47 daily. Medica l ) 1,000 mg Branch Cap aspirin 81 2021-0 Yes 81mg Take 81 mg U nivers mg chewable 6-14 by mouth ity of tablet 11:05: daily. [address] omeprazole 0 Yes 20mg Take 20 mg U nivers 20 mg 6-14 by mouth ity of capsule 11:05: daily. [address] cetirizine Yes 10mg Take 10 mg U nivers (ZYRTEC) 10 6-14 by mouth ity of mg tablet 11:05: daily. [address] vitamin B Yes 1{tbl} Take 1 Univ ers complex (B 6-14 tablet by ity of COMPLEX 11:05: mouth [place] ORAL) [address] [facility] Branch Maben-3 Yes 1000U Take 1,000 Uni vers Fatty Acids 6-14 Units by ity of (FISH OIL 11:05: mouth [place] CONCENTRATE 47 daily. Medica l ) 1,000 mg Branch Cap aspirin 81 0 Yes 81mg Take 81 mg U nivers mg chewable 6-14 by mouth ity of tablet 11:05: daily. [address] omeprazole Yes 20mg Take 20 mg U nivers 20 mg 6-14 by mouth ity of capsule 11:05: daily. [address] cetirizine Yes 10mg Take 10 mg U nivers (ZYRTEC) 10 6-14 by mouth ity of mg tablet 11:05: daily. [address] vitamin B Yes 1{tbl} Take 1 Univ ers complex (B 6-14 tablet by ity of COMPLEX 11:05: mouth [place] ORAL) 47 daily. [facility] Maben-3 Yes 1000U Take 1,000 Uni vers Fatty Acids 6-14 Units by ity of (FISH OIL 11:05: mouth [place] CONCENTRATE 47 daily. Medica l ) 1,000 mg Branch Cap aspirin 81 0 Yes 81mg Take 81 mg U nivers mg chewable 6-14 by mouth ity of tablet 11:05: daily. [address] omeprazole Yes 20mg Take 20 mg U nivers 20 mg 6-14 by mouth ity of capsule 11:05: daily. [address] cetirizine Yes 10mg Take 10 mg U nivers (ZYRTEC) 10 6-14 by mouth ity of mg tablet 11:05: daily. [address] vitamin B Yes 1{tbl} Take 1 Univ ers complex (B 6-14 tablet by ity of COMPLEX 11:05: mouth [place] ORAL) 47 daily. Medical Branch Maben-3 Yes 1000U Take 1,000 Uni vers Fatty Acids 6-14 Units by ity of (FISH OIL 11:05: mouth [place] CONCENTRATE 47 daily. Medica l ) 1,000 mg Branch Cap aspirin 81 2021-0 Yes 81mg Take 81 mg U nivers mg chewable 6-14 by mouth ity of tablet 11:05: daily. [place] [address] Medical Branch omeprazole 0 Yes 20mg Take 20 mg U nivers 20 mg 6-14 by mouth ity of capsule 11:05: daily. [address] Branch cetirizine Yes 10mg Take 10 mg U nivers (ZYRTEC) 10 6-14 by mouth ity of mg tablet 11:05: daily. [address] Branch vitamin B Yes 1{tbl} Take 1 Univ ers complex (B 6-14 tablet by ity of COMPLEX 11:05: mouth [place] ORAL) 47 daily. Medical Branch Maben-3 Yes 1000U Take 1,000 Uni vers Fatty Acids 6-14 Units by ity of (FISH OIL 11:05: mouth [place] CONCENTRATE 47 daily. Medica l ) 1,000 mg Branch Cap aspirin 81 2021-0 Yes 81mg Take 81 mg U nivers mg chewable 6-14 by mouth ity of tablet 11:05: daily. [address] omeprazole Yes 20mg Take 20 mg U nivers 20 mg 6-14 by mouth ity of capsule 11:05: daily. [address] Branch cetirizine Yes 10mg Take 10 mg U nivers (ZYRTEC) 10 6-14 by mouth ity of mg tablet 11:05: daily. [address] Branch vitamin B Yes 1{tbl} Take 1 Univ ers complex (B 6-14 tablet by ity of COMPLEX 11:05: mouth [place] ORAL) 47 daily. Medical Branch Maben-3 Yes 1000U Take 1,000 Uni vers Fatty Acids 6-14 Units by ity of (FISH OIL 11:05: mouth [place] CONCENTRATE 47 daily. Medica l ) 1,000 mg Branch Cap sildenafiL 0 Yes [id number] 25mg Take 1 [facility] 25 mg 6-14 tablet by ity of tablet 00:00: mouth as [place] 00 needed Medical (take Branch 15-30 minutes before intercours e daily as needed). metformin 2021-0 Yes [id number] 1000mg Take 2 Univers ER 500 mg 6-14 tablets by ity of 24 hr 00:00: mouth 2 [place] tablet 00 (two) Medical times Branch daily. losartan 2021-0 Yes [id number] 100mg Take 1 Uni vers 100 mg 6-14 tablet by ity of tablet 00:00: mouth [place] 00 daily. Medical Branch hydroCHLORO 2021-0 Yes [id number] 25mg Take 1 U nivers thiazide 25 6-14 tablet by ity of mg tablet 00:00: mouth [place] 00 daily. Medical Branch carvediloL 2021-0 Yes [id number] 6.25mg Take 1 Univers 6.25 mg 6-14 tablet by ity of tablet 00:00: mouth 2 [place] 00 (two) Medical times Branch daily. atorvastati 2021-0 Yes [id number] 40mg Take 1 Univers n 40 mg 6-14 tablet by ity of tablet 00:00: mouth [place] 00 daily. Medical Branch gemfibroziL 2021-0 Yes [id number] 600mg Take 1 [facility] 600 mg 6-14 tablet by ity of tablet 00:00: mouth [place] 00 daily. Medical Branch sildenafiL 2021-0 Yes [id number] 25mg Take 1 [facility] 25 mg 6-14 tablet by ity of tablet 00:00: mouth as [place] 00 needed Medical (take Branch 15-30 minutes before intercours e daily as needed). metformin 2021-0 Yes [id number] 1000mg Take 2 [facility] ER 500 mg 6-14 tablets by ity of 24 hr 00:00: mouth 2 [place] tablet 00 (two) Medical times Branch daily. losartan 2021-0 Yes [id number] 100mg Take 1 Uni vers 100 mg 6-14 tablet by ity of tablet 00:00: mouth [place] 00 daily. Medical Branch hydroCHLORO 2021-0 Yes [id number] 25mg Take 1 U nivers thiazide 25 6-14 tablet by ity of mg tablet 00:00: mouth [place] 00 daily. Medical Branch carvediloL 2021-0 Yes [id number] 6.25mg Take 1 [facility] 6.25 mg 6-14 tablet by ity of tablet 00:00: mouth 2 [place] 00 (two) Medical times Branch daily. atorvastati 2021-0 Yes [id number] 40mg Take 1 [facility] n 40 mg 6-14 tablet by ity of tablet 00:00: mouth [place] 00 daily. Medical Branch gemfibroziL 2021-0 Yes [id number] 600mg Take 1 [facility] 600 mg 6-14 tablet by ity of tablet 00:00: mouth [place] 00 daily. Medical Branch sildenafiL 2021-0 Yes [id number] 25mg Take 1 [facility] 25 mg 6-14 tablet by ity of tablet 00:00: mouth as [place] 00 needed Medical (take Branch 15-30 minutes before intercours e daily as needed). metformin 2021-0 Yes [id number] 1000mg Take 2 [facility] ER 500 mg 6-14 tablets by ity of 24 hr 00:00: mouth 2 [place] tablet 00 (two) Medical times Branch daily. losartan 2021-0 Yes [id number] 100mg Take 1 Uni vers 100 mg 6-14 tablet by ity of tablet 00:00: mouth [place] 00 daily. Medical Branch hydroCHLORO 2021-0 Yes [id number] 25mg Take 1 U nivers thiazide 25 6-14 tablet by ity of mg tablet 00:00: mouth [place] 00 daily. Medical Branch carvediloL 2021-0 Yes [id number] 6.25mg Take 1 [facility] 6.25 mg 6-14 tablet by ity of tablet 00:00: mouth 2 [place] 00 (two) Medical times Branch daily. atorvastati 2021-0 Yes [id number] 40mg Take 1 Univers n 40 mg 6-14 tablet by ity of tablet 00:00: mouth [place] 00 daily. Medical Branch gemfibroziL 2021-0 Yes [id number] 600mg Take 1 [facility] 600 mg 6-14 tablet by ity of tablet 00:00: mouth [place] 00 daily. Medical Branch sildenafiL 2021-0 Yes [id number] 25mg Take 1 [facility] 25 mg 6-14 tablet by ity of tablet 00:00: mouth as [place] 00 needed Medical (take Branch 15-30 minutes before intercours e daily as needed). metformin 2021-0 Yes [id number] 1000mg Take 2 [facility] ER 500 mg 6-14 tablets by ity of 24 hr 00:00: mouth 2 [place] tablet 00 (two) Medical times Branch daily. losartan 2022-0 Yes [id number] 100mg Take 1 Uni vers 100 mg 6-14 tablet by ity of tablet 00:00: mouth [place] 00 daily. Medical Branch hydroCHLORO 2021-0 Yes [id number] 25mg Take 1 U nivers thiazide 25 6-14 tablet by ity of mg tablet 00:00: mouth [place] 00 daily. Medical Branch carvediloL 2021-0 Yes [id number] 6.25mg Take 1 [facility] 6.25 mg 6-14 tablet by ity of tablet 00:00: mouth 2 [place] 00 (two) Medical times Branch daily. atorvastati 2021-0 Yes [id number] 40mg Take 1 Univers n 40 mg 6-14 tablet by ity of tablet 00:00: mouth [place] 00 daily. Medical Branch gemfibroziL 2021-0 Yes [id number] 600mg Take 1 [facility] 600 mg 6-14 tablet by ity of tablet 00:00: mouth [place] 00 daily. Medical Branch metformin 2021-0 Yes [id number] 1000mg Take 2 [facility] ER 500 mg 6-14 tablets by ity of 24 hr 00:00: mouth 2 [place] tablet 00 (two) Medical times Branch daily. losartan 2021-0 Yes [id number] 100mg Take 1 Uni vers 100 mg 6-14 tablet by ity of tablet 00:00: mouth [place] 00 daily. Medical Branch hydroCHLORO 2021-0 Yes [id number] 25mg Take 1 U nivers thiazide 25 6-14 tablet by ity of mg tablet 00:00: mouth [place] 00 daily. Medical Branch carvediloL 2021-0 Yes [id number] 6.25mg Take 1 [facility] 6.25 mg 6-14 tablet by ity of tablet 00:00: mouth 2 [place] 00 (two) Medical times Branch daily. atorvastati 2021-0 Yes [id number] 40mg Take 1 Univers n 40 mg 6-14 tablet by ity of tablet 00:00: mouth [place] 00 daily. Medical Branch gemfibroziL 2021-0 Yes [id number] 600mg Take 1 [facility] 600 mg 6-14 tablet by ity of tablet 00:00: mouth [place] 00 daily. Medical Branch metformin 2021-0 Yes [id number] 1000mg Take 2 [facility] ER 500 mg 6-14 tablets by ity of 24 hr 00:00: mouth 2 [place] tablet 00 (two) Medical times Branch daily. losartan 2021-0 Yes [id number] 100mg Take 1 Uni vers 100 mg 6-14 tablet by ity of tablet 00:00: mouth [place] 00 daily. Medical Branch hydroCHLORO 2021-0 Yes [id number] 25mg Take 1 U nivers thiazide 25 6-14 tablet by ity of mg tablet 00:00: mouth [place] 00 daily. Medical Branch carvediloL 0 Yes [id number] 6.25mg Take 1 [facility] 6.25 mg 6-14 tablet by ity of tablet 00:00: mouth 2 [place] 00 (two) Medical times Branch daily. atorvastati 0 Yes [id number] 40mg Take 1 [facility] n 40 mg 6-14 tablet by ity of tablet 00:00: mouth [place] 00 daily. Medical Branch gemfibroziL 2021-0 Yes [id number] 600mg Take 1 [facility] 600 mg 6-14 tablet by ity of tablet 00:00: mouth [place] 00 daily. Medical Branch metformin 2021-0 Yes [id number] 1000mg Take 2 [facility] ER 500 mg 6-14 tablets by ity of 24 hr 00:00: mouth 2 [place] tablet 00 (two) Medical times Branch daily. losartan 0 Yes [id number] 100mg Take 1 Uni vers 100 mg 6-14 tablet by ity of tablet 00:00: mouth [place] 00 daily. Medical Branch hydroCHLORO 0 Yes [id number] 25mg Take 1 U nivers thiazide 25 6-14 tablet by ity of mg tablet 00:00: mouth [place] 00 daily. Medical Branch carvediloL 0 Yes [id number] 6.25mg Take 1 Univers 6.25 mg 6-14 tablet by ity of tablet 00:00: mouth 2 [place] 00 (two) Medical times Branch daily. atorvastati 2021-0 Yes [id number] 40mg Take 1 [facility] n 40 mg 6-14 tablet by ity of tablet 00:00: mouth [place] 00 daily. Medical Branch gemfibroziL 2021-0 Yes [id number] 600mg Take 1 [facility] 600 mg 6-14 tablet by ity of tablet 00:00: mouth [place] 00 daily. Medical Branch metformin 2021-0 Yes [id number] 1000mg Take 2 [facility] ER 500 mg 6-14 tablets by ity of 24 hr 00:00: mouth 2 [place] tablet 00 (two) Medical times Branch daily. losartan 2022-0 Yes [id number] 100mg Take 1 Uni vers 100 mg 6-14 tablet by ity of tablet 00:00: mouth [place] 00 daily. Medical Branch hydroCHLORO 0 Yes [id number] 25mg Take 1 U nivers thiazide 25 6-14 tablet by ity of mg tablet 00:00: mouth [place] 00 daily. Medical Branch carvediloL 0 Yes [id number] 6.25mg Take 1 [facility] 6.25 mg 6-14 tablet by ity of tablet 00:00: mouth 2 [place] 00 (two) Medical times Branch daily. atorvastati 0 Yes [id number] 40mg Take 1 Univers n 40 mg 6-14 tablet by ity of tablet 00:00: mouth [place] 00 daily. Medical Branch gemfibroziL Yes [id number] 600mg Take 1 [facility] 600 mg 6-14 tablet by ity of tablet 00:00: mouth [place] 00 daily. Medical Branch metformin 0 Yes [id number] 1000mg Take 2 Univers ER 500 mg 6-14 tablets by ity of 24 hr 00:00: mouth 2 [place] tablet 00 (two) Medical times Branch daily. losartan Yes [id number] 100mg Take 1 Uni vers 100 mg 6-14 tablet by ity of tablet 00:00: mouth [place] 00 daily. Medical Branch hydroCHLORO 0 Yes [id number] 25mg Take 1 U nivers thiazide 25 6-14 tablet by ity of mg tablet 00:00: mouth [place] 00 daily. Medical Branch carvediloL Yes [id number] 6.25mg Take 1 Univers 6.25 mg 6-14 tablet by ity of tablet 00:00: mouth 2 [place] 00 (two) Medical times Branch daily. atorvastati 0 Yes [id number] 40mg Take 1 [facility] n 40 mg 6-14 tablet by ity of tablet 00:00: mouth [place] 00 daily. Medical Branch gemfibroziL 2021-0 Yes [id number] 600mg Take 1 [facility] 600 mg 6-14 tablet by ity of tablet 00:00: mouth [place] 00 daily. Medical Branch metformin 2021-0 Yes [id number] 1000mg Take 2 [facility] ER 500 mg 6-14 tablets by ity of 24 hr 00:00: mouth 2 [place] tablet 00 (two) Medical times Branch daily. losartan 2022-0 Yes [id number] 100mg Take 1 Uni vers 100 mg 6-14 tablet by ity of tablet 00:00: mouth [place] 00 daily. Medical Branch hydroCHLORO 2021-0 Yes [id number] 25mg Take 1 U nivers thiazide 25 6-14 tablet by ity of mg tablet 00:00: mouth [place] 00 daily. Medical Branch carvediloL 0 Yes [id number] 6.25mg Take 1 Univers 6.25 mg 6-14 tablet by ity of tablet 00:00: mouth 2 [place] 00 (two) Medical times Branch daily. atorvastati 0 Yes [id number] 40mg Take 1 [facility] n 40 mg 6-14 tablet by ity of tablet 00:00: mouth [place] 00 daily. Medical Branch gemfibroziL 0 Yes [id number] 600mg Take 1 [facility] 600 mg 6-14 tablet by ity of tablet 00:00: mouth [place] 00 daily. Medical Branch metformin 2021-0 Yes [id number] 1000mg Take 2 [facility] ER 500 mg 6-14 tablets by ity of 24 hr 00:00: mouth 2 [place] tablet 00 (two) Medical times Branch daily. losartan 0 Yes [id number] 100mg Take 1 Uni vers 100 mg 6-14 tablet by ity of tablet 00:00: mouth [place] 00 daily. Medical Branch hydroCHLORO 0 Yes [id number] 25mg Take 1 U nivers thiazide 25 6-14 tablet by ity of mg tablet 00:00: mouth [place] 00 daily. Medical Branch carvediloL 0 Yes [id number] 6.25mg Take 1 [facility] 6.25 mg 6-14 tablet by ity of tablet 00:00: mouth 2 [place] 00 (two) Medical times Branch daily. atorvastati 0 Yes [id number] 40mg Take 1 [facility] n 40 mg 6-14 tablet by ity of tablet 00:00: mouth [place] 00 daily. Medical Branch gemfibroziL 2021-0 Yes [id number] 600mg Take 1 [facility] 600 mg 6-14 tablet by ity of tablet 00:00: mouth [place] 00 daily. Medical Branch sildenafiL 2021-0 2022- No [id number] 25mg Take 1 [facility] 25 mg 6-14 12-13 tablet by ity of tablet 00:00: 00:00 mouth as [place] 00 :00 needed Medical (take Branch 15-30 minutes before intercours e daily as needed). sildenafiL 2021-0 2021- No [id number] 25mg Take 1 [facility] 25 mg 6-14 12-13 tablet by ity of tablet 00:00: 00:00 mouth as [place] 00 :00 needed Medical (take Branch 15-30 minutes before intercours e daily as needed). Lancets 0 Yes [id number] Check Univ ers Misc 4-14 sugars 2 ity of 00:00: times a day. Dx Medical Code Branch E11.9. Contour Next brand. blood sugar 0 Yes [id number] Check Univers diagnostic 4-14 sugars 2 ity o f strip 00:00: times a day. Dx Medical Code Branch E11.9. Contour Next brand. glipiZIDE 2021-0 Yes [id number] 10mg Take 2 U nivers XL 5 mg 24 4-14 tablets by ity of hr tablet 00:00: mouth daily with Medical breakfast. Branch Only if BG > 150 Lancets 0 Yes [id number] Check Univ ers Misc 4-14 sugars 2 ity of 00:00: times a day. Dx Medical Code Branch E11.9. Contour Next brand. blood sugar 2021-0 Yes [id number] Check Univers diagnostic 4-14 sugars 2 ity o f strip 00:00: times a day. Dx Medical Code Branch E11.9. Contour Next brand. glipiZIDE 2021-0 Yes [id number] 10mg Take 2 U nivers XL 5 mg 24 4-14 tablets by ity of hr tablet 00:00: mouth daily with Medical breakfast. Branch Only if BG > 150 Lancets 0 Yes [id number] Check Univ ers Misc 4-14 sugars 2 ity of 00:00: times a day. Dx Medical Code Branch E11.9. Contour Next brand. blood sugar 2021-0 Yes [id number] Check Univers diagnostic 4-14 sugars 2 ity o f strip 00:00: times a day. Dx Medical Code Branch E11.9. Contour Next brand. glipiZIDE 2021-0 Yes [id number] 10mg Take 2 U nivers XL 5 mg 24 4-14 tablets by ity of hr tablet 00:00: mouth [place] 00 daily with Medical breakfast. Branch Only if BG > 150 Lancets 2-0 Yes [id number] Check Univ ers Misc 4-14 sugars 2 ity of 00:00: times a day. Dx Medical Code Branch E11.9. Contour Next brand. blood sugar 2-0 Yes [id number] Check Univers diagnostic 4-14 sugars 2 ity o f strip 00:00: times a day. Dx Medical Code Branch E11.9. Contour Next brand. glipiZIDE 2022-0 Yes [id number] 10mg Take 2 U nivers XL 5 mg 24 4-14 tablets by ity of hr tablet 00:00: mouth daily with Medical breakfast. Branch Only if BG > 150 Lancets 2021-0 Yes [id number] Check Univ ers Misc 4-14 sugars 2 ity of 00:00: times a day. Dx Medical Code Branch E11.9. Contour Next brand. blood sugar 2-0 Yes [id number] Check Univers diagnostic 4-14 sugars 2 ity o f strip 00:00: times a day. Dx Medical Code Branch E11.9. Contour Next brand. glipiZIDE 2-0 Yes [id number] 10mg Take 2 U nivers XL 5 mg 24 4-14 tablets by ity of hr tablet 00:00: mouth daily with Medical breakfast. Branch Only if BG > 150 Lancets 2021-0 Yes [id number] Check Univ ers Misc 4-14 sugars 2 ity of 00:00: times a day. Dx Medical Code Branch E11.9. Contour Next brand. blood sugar 2-0 Yes [id number] Check Univers diagnostic 4-14 sugars 2 ity o f strip 00:00: times a day. Dx Medical Code Branch E11.9. Contour Next brand. glipiZIDE 2022-0 Yes [id number] 10mg Take 2 U nivers XL 5 mg 24 4-14 tablets by ity of hr tablet 00:00: mouth daily with Medical breakfast. Branch Only if BG > 150 Lancets 2-0 Yes [id number] Check Univ ers Misc 4-14 sugars 2 ity of 00:00: times a day. Dx Medical Code Branch E11.9. Contour Next brand. blood sugar 2022-0 Yes [id number] Check Univers diagnostic 4-14 sugars 2 ity o f strip 00:00: times a day. Dx Medical Code Branch E11.9. Contour Next brand. glipiZIDE 2-0 Yes [id number] 10mg Take 2 U nivers XL 5 mg 24 4-14 tablets by ity of hr tablet 00:00: mouth 00 daily with Medical breakfast. Branch Only if BG > 150 Lancets 2021-0 Yes [id number] Check Univ ers Misc 4-14 sugars 2 ity of 00:00: times a day. Dx Medical Code Branch E11.9. Contour Next brand. blood sugar 2021-0 Yes [id number] Check Univers diagnostic 4-14 sugars 2 ity o f strip 00:00: times a day. Dx Medical Code Branch E11.9. Contour Next brand. glipiZIDE 2-0 Yes [id number] 10mg Take 2 U nivers XL 5 mg 24 4-14 tablets by ity of hr tablet 00:00: mouth daily with Medical breakfast. Branch Only if BG > 150 Lancets 2021-0 Yes [id number] Check Univ ers Misc 4-14 sugars 2 ity of 00:00: times a day. Dx Medical Code Branch E11.9. Contour Next brand. blood sugar 2021-0 Yes [id number] Check Univers diagnostic 4-14 sugars 2 ity o f strip 00:00: times a day. Dx Medical Code Branch E11.9. Contour Next brand. glipiZIDE 2-0 Yes [id number] 10mg Take 2 U nivers XL 5 mg 24 4-14 tablets by ity of hr tablet 00:00: mouth daily with Medical breakfast. Branch Only if BG > 150 Lancets 2021-0 Yes [id number] Check Univ ers Misc 4-14 sugars 2 ity of 00:00: times a day. Dx Medical Code Branch E11.9. Contour Next brand. blood sugar 2-0 Yes [id number] Check Univers diagnostic 4-14 sugars 2 ity o f strip 00:00: times a 00 day. Dx Medical Code Branch E11.9. Contour Next brand. glipiZIDE 2-0 Yes [id number] 10mg Take 2 U nivers XL 5 mg 24 4-14 tablets by ity of hr tablet 00:00: mouth [place] 00 daily with Medical breakfast. Branch Only if BG > 150 Lancets Yes [id number] Check Univ ers Misc 4-14 sugars 2 ity of 00:00: times a [place] 00 day. Dx Medical Code Branch E11.9. Contour Next brand. blood sugar Yes [id number] Check Univers diagnostic 4-14 sugars 2 ity o f strip 00:00: times a [place] 00 day. Dx Medical Code Branch E11.9. Contour Next brand. glipiZIDE Yes [id number] 10mg Take 2 U nivers XL 5 mg 24 4-14 tablets by ity of hr tablet 00:00: mouth [place] 00 daily with Medical breakfast. Branch Only if BG > 150 traMADol Yes Fracture of 50mg Take 1 Univers (ULTRAM) 50 2-03 distal end tablet (50 ity of mg tablet 00:00: of right mg) by [place] 00 radius mouth MD <Closed; every 4 [place] Initial> (four) n hours as Cancer needed for Center moderate pain or severe pain. 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 blood sugar Yes Diabetes USE TO Univers diagnostic 8-12 mellitus CHECK ity of (Contour 00:00: without BLOOD [place] Next Test 00 mention of GLUCOSE M D Strips) complicatio TWO TIMES Anderso strp n, type II A DAY n or BEFORE Cancer unspecified YOUR 2 Center type, LARGEST uncontrolle MEALS d lancets Yes Diabetes USE TO [facility] ers (Microlet 8-12 mellitus CHECK ity o f Lancet) 00:00: without BLOOD [place] misc 00 mention of GLUCOSE MD complicatio TWO TIMES And erso n, type II A DAY n or BEFORE Cancer unspecified YOUR 2 Center type, LARGEST uncontrolle MEALS d metFORMIN Yes Diabetes 1000mg Take 2 Univers (GLUCOPHAGE 3-23 mellitus tablets i ty of -XR) 500 mg 00:00: without (1,000 mg) [place] 24 hr 00 mention of by mouth 2 MD tablet complicatio (two) [place] so n, type II times a n or day with Cancer unspecified meals. Center type, uncontrolle d cyclobenzap Yes Univer s rine 3-05 ity of (FLEXERIL) 00:00: [place] 10 mg 00 MD tablet [facility] traMADol Yes 50mg Take 50 mg Uni vers (ULTRAM) 50 3-02 by mouth. 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 blood-gluco Yes Diabetes Use to Univers se meter 3-17 mellitus check ity of kit 00:00: without blood [place] 00 mention of glucose as MD garcia directed. And erso n, type II n or Cancer unspecified Center type, uncontrolle d gemfibrozil Yes 600mg Take 600 U nivers (LOPID) 600 1-10 mg by ity of mg tablet 00:00: mouth [place] 00 daily. MD [facility] carvedilol 2016-03 Yes 6.25mg Take 6.25 Univers (COREG) 1-13 mg by ity of 6.25 mg 00:00: mouth [place] tablet 00 twice MD daily. [facility] [place] atorvastati 2016-03 Yes 40mg Take 40 mg Univers n (LIPITOR) 0-26 by mouth ity of 40 mg 00:00: daily. [place] tablet 00 MD [facility] losartan 2016- Yes 100mg Take 100 Univ ers (COZAAR) 0-05 mg by ity of 100 mg 00:00: mouth [place] tablet 00 daily. MD [facility] hydroCHLORO 2016-03 Yes 25mg Take 25 mg Univers thiazide 0-01 by mouth ity of (HYDRODIURI 00:00: daily. [place] 25 mg 00 tablet [facility] Immunizations Ordered Filled Immunization Date Status Comments [facility] e Immunization Name Name Influenza Virus 2021-03-31 Completed Universit y of Vaccine,quad 00:00:00 [place] Med[facility] l Im,preserve Free Branch 65+ Influenza Virus 2021-03-31 Completed Universit y of Vaccine,quad 00:00:00 [place] Medica l Im,preserve Free Branch 65+ Influenza Virus 2021-03-31 Completed Universit y of Vaccine,quad 00:00:00 [place] Medica l Im,preserve Free Branch 65+ Influenza Virus 2021-03-31 Completed Universit y of Vaccine,quad 00:00:00 [place] Medica l Im,preserve Free Branch 65+ Influenza Virus 2021-03-31 Completed Universit y of Vaccine,quad 00:00:00 [place] Medica l Im,preserve Free Branch 65+ Influenza Virus 2021-03-31 Completed Universit y of Vaccine,quad 00:00:00 [place] Medica l Im,preserve Free Branch 65+ Influenza Virus 2021-03-31 Completed Universit y of Vaccine,quad 00:00:00 [place] Medica l Im,preserve Free Branch 65+ Influenza Virus 2021-03-31 Completed Universit y of Vaccine,quad 00:00:00 [place] Medica l Im,preserve Free Branch 65+ Influenza Virus 2021-03-31 Completed Universit y of Vaccine,quad 00:00:00 [place] Medica l Im,preserve Free Branch 65+ Influenza Virus 2021-03-31 Completed Universit y of Vaccine,quad 00:00:00 [place] Medica l Im,preserve Free Branch 65+ Influenza Virus 2021-03-31 Completed Universit y of Vaccine,quad 00:00:00 [place] Medica l Im,preserve Free Branch 65+ SARS-COV-2 COVID-19 2020-05-10 Completed Unive rsity of MODERNA 12+ YRS 00:00:00 [place] Med ical VACCINE Branch SARS-COV-2 COVID-19 2020-05-10 Completed Unive rsity of MODERNA 12+ YRS 00:00:00 [place] Med ical VACCINE Branch SARS-COV-2 COVID-19 2020-05-10 Completed Unive rsity of MODERNA 12+ YRS 00:00:00 [place] Med ical VACCINE Branch SARS-COV-2 COVID-19 2020-05-10 Completed Unive rsity of MODERNA 12+ YRS 00:00:00 [place] Med ical VACCINE Branch SARS-COV-2 COVID-19 2020-05-10 Completed Unive rsity of MODERNA 12+ YRS 00:00:00 [place] Med ical VACCINE Branch SARS-COV-2 COVID-19 2020-05-10 Completed Unive rsity of MODERNA 12+ YRS 00:00:00 [place] Med ical VACCINE Branch SARS-COV-2 COVID-19 2020-05-10 Completed Unive rsity of MODERNA 12+ YRS 00:00:00 [place] Med ical VACCINE Branch SARS-COV-2 COVID-19 2020-05-10 Completed Unive rsity of MODERNA 12+ YRS 00:00:00 [place] Med ical VACCINE Branch SARS-COV-2 COVID-19 2020-05-10 Completed Unive rsity of MODERNA 12+ YRS 00:00:00 [place] Med ical VACCINE Branch SARS-COV-2 COVID-19 2020-05-10 Completed Unive rsity of MODERNA 12+ YRS 00:00:00 [place] Med ical VACCINE Branch SARS-COV-2 COVID-19 2020-05-10 Completed Unive rsity of MODERNA 12+ YRS 00:00:00 [place] Med ical VACCINE Branch SARS-COV-2 COVID-19 2020-04-12 Completed Unive rsity of MODERNA 12+ YRS 00:00:00 [place] Med ical VACCINE Branch SARS-COV-2 COVID-19 2020-04-12 Completed Unive rsity of MODERNA 12+ YRS 00:00:00 [place] Med ical VACCINE Branch SARS-COV-2 COVID-19 2020-04-12 Completed Unive rsity of MODERNA 12+ YRS 00:00:00 [place] Med ical VACCINE Branch SARS-COV-2 COVID-19 2020-04-12 Completed Unive rsity of MODERNA 12+ YRS 00:00:00 [place] Med ical VACCINE Branch SARS-COV-2 COVID-19 2020-04-12 Completed Unive rsity of MODERNA 12+ YRS 00:00:00 [place] Med ical VACCINE Branch SARS-COV-2 COVID-19 2020-04-12 Completed Unive rsity of MODERNA 12+ YRS 00:00:00 [place] Med ical VACCINE Branch SARS-COV-2 COVID-19 2020-04-12 Completed Unive rsity of MODERNA 12+ YRS 00:00:00 [place] Med ical VACCINE Branch SARS-COV-2 COVID-19 2020-04-12 Completed Unive rsity of MODERNA 12+ YRS 00:00:00 [place] Med ical VACCINE Branch SARS-COV-2 COVID-19 2020-04-12 Completed Unive rsity of MODERNA 12+ YRS 00:00:00 [place] Med ical VACCINE Branch SARS-COV-2 COVID-19 2020-04-12 Completed Unive rsity of MODERNA 12+ YRS 00:00:00 [place] Med ical VACCINE Branch SARS-COV-2 COVID-19 2020-04-12 Completed Unive rsity of MODERNA 12+ YRS 00:00:00 [place] Med ical VACCINE Branch Pneumococcal 2019-12-03 Completed University o f Polysaccharide, 00:00:00 [place] [facility] PPSV23 (PNEUMOVAX) Branch Influenza High Dose 2019-12-03 Completed Unive rsity of Quad 00:00:00 [facility] Pneumococcal 2019-12-03 Completed University o f Polysaccharide, 00:00:00 [place] [facility] PPSV23 (PNEUMOVAX) Branch Influenza High Dose 2019-12-03 Completed Unive rsity of Quad 00:00:00 [facility] Pneumococcal 2019-12-03 Completed University o f Polysaccharide, 00:00:00 [place] [facility] PPSV23 (PNEUMOVAX) Branch Influenza High Dose 2019-12-03 Completed Unive rsity of Quad 00:00:00 [facility] Pneumococcal 2019-12-03 Completed University o f Polysaccharide, 00:00:00 [place] [facility] PPSV23 (PNEUMOVAX) Branch Influenza High Dose 2019-12-03 Completed Unive rsity of Quad 00:00:00 [facility] Pneumococcal 2019-12-03 Completed University o f Polysaccharide, 00:00:00 [place] [facility] PPSV23 (PNEUMOVAX) Branch Influenza High Dose 2019-12-03 Completed Unive rsity of Quad 00:00:00 [facility] Pneumococcal 2019-12-03 Completed University o f Polysaccharide, 00:00:00 [place] [facility] PPSV23 (PNEUMOVAX) Branch Influenza High Dose 2019-12-03 Completed Unive rsity of Quad 00:00:00 [facility] Pneumococcal 2019-12-03 Completed University o f Polysaccharide, 00:00:00 [place] [facility] PPSV23 (PNEUMOVAX) Branch Influenza High Dose 2019-12-03 Completed Unive rsity of Quad 00:00:00 [facility] Pneumococcal 2019-12-03 Completed University o f Polysaccharide, 00:00:00 [place] [facility] PPSV23 (PNEUMOVAX) Branch Influenza High Dose 2019-12-03 Completed Unive rsity of Quad 00:00:00 [facility] Pneumococcal 2019-12-03 Completed University o f Polysaccharide, 00:00:00 [place] [facility] PPSV23 (PNEUMOVAX) Branch Influenza High Dose 2019-12-03 Completed Unive rsity of Quad 00:00:00 [facility] Pneumococcal 2019-12-03 Completed University o f Polysaccharide, 00:00:00 [place] [facility] PPSV23 (PNEUMOVAX) Branch Influenza High Dose 2019-12-03 Completed Unive rsity of Quad 00:00:00 [facility] Pneumococcal 2019-12-03 Completed University o f Polysaccharide, 00:00:00 [place] [facility] PPSV23 (PNEUMOVAX) Branch Influenza High Dose 2019-12-03 Completed Unive rsity of Quad 00:00:00 [facility] Influenza Virus 2019-01-05 Completed Universit y of Vaccine 00:00:00 [facility] Influenza Virus 2019-01-05 Completed Universit y of Vaccine 00:00:00 [facility] Influenza Virus 2019-01-05 Completed Universit y of Vaccine 00:00:00 [facility] Influenza Virus 2019-01-05 Completed Universit y of Vaccine 00:00:00 [facility] Influenza Virus 2019-01-05 Completed Universit y of Vaccine 00:00:00 [facility] Influenza Virus 2019-01-05 Completed Universit y of Vaccine 00:00:00 [facility] Influenza Virus 2019-01-05 Completed Universit y of Vaccine 00:00:00 [facility] Influenza Virus 2019-01-05 Completed Universit y of Vaccine 00:00:00 [facility] Influenza Virus 2019-01-05 Completed Universit y of Vaccine 00:00:00 [facility] Influenza Virus 2019-01-05 Completed Universit y of Vaccine 00:00:00 [facility] Influenza Virus 2019-01-05 Completed Universit y of Vaccine 00:00:00 [facility] Influenza High Dose 2017-02-03 Completed Unive rsity of 00:00:00 [facility] Pneumococcal 13 2017-02-03 Completed Universit y of Conjugate, PCV13 00:00:00 [facility] dical (Prevnar 13) Branch Influenza High Dose 2017-02-03 Completed Unive rsity of 00:00:00 [facility] Pneumococcal 13 2017-02-03 Completed Universit y of Conjugate, PCV13 00:00:00 [facility] dical (Prevnar 13) [place] Influenza High Dose 2017-02-03 Completed Unive rsity of 00:00:00 [facility] Pneumococcal 13 2017-02-03 Completed Universit y of Conjugate, PCV13 00:00:00 [facility] dical (Prevnar 13) [place] Influenza High Dose 2017-02-03 Completed Unive rsity of 00:00:00 [facility] Pneumococcal 13 2017-02-03 Completed Universit y of Conjugate, PCV13 00:00:00 [facility] dical (Prevnar 13) Branch Influenza High Dose 2017-02-03 Completed Unive rsity of 00:00:00 [facility] Pneumococcal 13 2017-02-03 Completed Universit y of Conjugate, PCV13 00:00:00 [facility] dical (Prevnar 13) Branch Influenza High Dose 2017-02-03 Completed Unive rsity of 00:00:00 [facility] Pneumococcal 13 2017-02-03 Completed Universit y of Conjugate, PCV13 00:00:00 [facility] dical (Prevnar 13) Branch Influenza High Dose 2017-02-03 Completed Unive rsity of 00:00:00 [facility] Pneumococcal 13 2017-02-03 Completed Universit y of Conjugate, PCV13 00:00:00 [facility] dical (Prevnar 13) Branch Influenza High Dose 2017-02-03 Completed Unive rsity of 00:00:00 [facility] Pneumococcal 13 2017-02-03 Completed Universit y of Conjugate, PCV13 00:00:00 [facility] dical (Prevnar 13) Branch Influenza High Dose 2017-02-03 Completed Unive rsity of 00:00:00 [facility] Pneumococcal 13 2017-02-03 Completed Universit y of Conjugate, PCV13 00:00:00 [facility] dical (Prevnar 13) Branch Influenza High Dose 2017-02-03 Completed Unive rsity of 00:00:00 [facility] Pneumococcal 13 2017-02-03 Completed Universit y of Conjugate, PCV13 00:00:00 [facility] dical (Prevnar 13) Branch Influenza High Dose 2017-02-03 Completed Unive rsity of 00:00:00 [facility] Pneumococcal 13 2017-02-03 Completed Universit y of Conjugate, PCV13 00:00:00 [facility] dical (Prevnar 13) Branch TDAP 2014-03-07 Completed University of 00:00:00 [facility] TDAP 2014-03-07 Completed University of 00:00:00 [facility] TDAP 2014-03-07 Completed University of 00:00:00 [facility] TDAP 2014-03-07 Completed University of 00:00:00 [facility] TDAP 2014-03-07 Completed University of 00:00:00 [facility] TDAP 2014-03-07 Completed University of 00:00:00 [facility] TDAP 2014-03-07 Completed University of 00:00:00 [facility] TDAP 2014-03-07 Completed University of 00:00:00 [facility] TDAP 2014-03-07 Completed University of 00:00:00 [facility] TDAP 2014-03-07 Completed University of 00:00:00 [facility] TDAP 2014-03-07 Completed University of 00:00:00 [facility] Vital Signs Vital Name Observation Time Observation Value Comments Source Systolic blood 2022-02-22 22:19:00 154 mm[Hg] Univer sity of pressure [facility] Diastolic blood 2022-02-22 22:19:00 78 mm[Hg] Unive rsity of pressure [facility] Body height 2022-02-22 22:16:00 179.1 cm [facility] Body weight 2022-02-22 22:16:00 133.358 kg [facility] BMI 2022-02-22 22:16:00 41.59 kg/m2 [facility] [place] [facility] Oxygen saturation in 2022-02-22 22:16:00 97 /min University of Arterial blood by [facility] Pulse oximetry Branch Systolic blood 2022-02-16 17:41:00 137 mm[Hg] Univer sity of pressure [facility] Diastolic blood 2022-02-16 17:41:00 81 mm[Hg] Unive rsity of pressure [facility] Heart rate 2022-02-16 17:41:00 67 /min [facility] [place] [facility] Respiratory rate 2022-02-16 17:41:00 18 /min Univ ersity [facility] [place] [facility] Body height 2022-02-16 17:41:00 179.1 cm [facility] [place] [facility] Body weight 2022-02-16 17:41:00 132.904 kg [facility] [place] [facility] BMI 2022-02-16 17:41:00 41.45 kg/m2 [facility] [place] [facility] Systolic blood 2021-11-13 15:40:00 131 mm[Hg] Univer sity of pressure [facility] Diastolic blood 2021-11-13 15:40:00 75 mm[Hg] Unive rsity of pressure [facility] Heart rate 2021-11-13 15:40:00 60 /min [facility] [place] [facility] Respiratory rate 2021-11-13 15:40:00 18 /min Univ ersity [facility] [place] [facility] Body weight 2021-11-13 15:40:00 133.267 kg [facility] [place] [facility] BMI 2021-11-13 15:40:00 41.56 kg/m2 [facility] [place] [facility] Oxygen saturation in 2021-11-13 15:40:00 97 /min University of Arterial blood by [facility] Pulse oximetry Branch WEIGHT 2020-05-27 10:16:00 122.3 kg WEIGHT 2020-02-19 10:30:00 127.6 kg WEIGHT 2020-02-07 09:00:00 132.4 kg HEIGHT 2020-02-06 17:41:00 179 cm WEIGHT 2020-02-05 08:57:00 131.7 kg Systolic blood 2021-12-15 15:11:03 147 mm[Hg] Univer sity of pressure [facility] Diastolic blood 2021-12-15 15:11:03 68 mm[Hg] [facility] [place] [facility] Heart rate 2021-12-15 15:11:03 58 /min Universi [facility] Body temperature 2021-12-15 15:11:03 37 Claudia [facility] Respiratory rate 2021-12-15 15:11:03 20 /min [facility] Body weight 2021-12-15 15:11:03 134.6 kg Universi ty [facility] [place] [facility] BMI 2021-12-15 15:11:03 42.01 kg[facility]m2 [facility] Oxygen saturation in 2021-09-01 14:29:10 97 /min [facility] Arterial blood by Stephany peñaloza Pulse oximetry [facility] Procedures Procedure Date / Time Performed Performing Clinician [facility] e POCT HEMOGLOBIN A1C 2022-02-16 18:12:00 Thi Sands [facility] XR FOREARM 2 VW RIGHT 2021-12-15 15:19:05 Stefany Mercado [facility] XR FOREARM 2 VW RIGHT 2021-09-01 14:27:56 Pa Jaffe [facility] XR WRIST 3 VWS MINIMUM 2021-06-02 17:31:26 Hudson Fernandez [facility] Plan of Care Planned Activity Planned Date Details Comments Source Future Scheduled 2022-04-09 COVID-19 Vaccination Uni [facility] Test 08:49:53 (3 - Booster for MD Gild[facility] Cancer Moderna series) [code Center = COVID-19 Vaccination (3 - Booster for Moderna series)] Encounters Start End Encounter Admission Attending Care Care Encounter Source Date/Time Date/Time Type Type Clinicians Facility Department ID 2019-12-03 Outpatient SYSTEM, YEVGENIY VUONG [id number] 13:27:39 PROVIDER Charlydavin [facility] 2022-07-21 2022-07-21 Outpatient R GRISELDA FLSAMUEL [facility] [id number] [facility] 13:20:00 13:20:00 PETER [facility] 2022-04-06 2022-04-06 [facility] 1.2.840.114 [id number] Univers 00:00:00 00:00:00 Margaux SHELBY 350.1.13.10 ity of [place]2.[place] [id number] Mi brad[address] 2022-03-15 2022-03-15 Outpatient R MALAIKA HUDSON [facility] [id number] Univers 11:20:00 11:20:00 MALAIKAHUDSON [facility] 2022-02-22 2022-02-22 Outpatient R MALAIKA, HUDSON [facility] [id number] Univers 16:20:00 16:43:41 MALAIKAHUDSON [facility] 2022-02-22 2022-02-22 [facility] 1.2.840.114 [id number] Univers 16:20:00 16:43:41 Visit [facility] [id number] ity of [place] 4.2.7.2.686 Saurav as DIONISIO?BLEA [id number] [address] [facility] 2022-02-19 2022-02-19 [facility] 1.2.840.114 [id number] Univers 00:00:00 00:00:00 Hudson [facility] [id number] ity of [place] 4.2.7.2.686 Saurav as DIONISIO?BLEA [id number] [address] OFFICE BUILDING 2022-02-18 2022-02-18 Outpatient R LUCIO [facility] [id number] Univers 12:12:14 23:59:00 MERE [facility] 2022-02-18 2022-02-18 [facility] 1.2.664.545 [id number] Univers 12:12:14 23:59:00 [facility] [id number] [place] [id number] [address] OFFICE BUILDING 2022-02-16 2022-02-16 Outpatient R THI SANDS [facility] [id number] Univers 11:30:00 12:25:07 THI SANDS ity of [facility] 2022-02-16 2022-02-16 Office Meghan [facility] 1.2.840.114 [id number] [facility] 11:30:00 12:25:07 Visit Thi SHELBY 350.1.13.10 ity [facility] 4.2.[place].2.[place] [id number] Mi dichossein [address] 2022-02-01 2022-02-01 Telephone [facility] 1.2.643.833 [id number] Univers 00:00:00 00:00:00 Zuli 350.1.13.10 it y of [place] 4.2.7.2.686 Saurav as DIONISIO?BLEA [id number] Mi dichossein ROSADO [address] [place] [address] 2022-01-26 2022-01-26 Refill [facility] 1.2.840.114 [id number] Univers 00:00:00 00:00:00 Zuli 350.1.13.10 it y of [place] 4.2.7.2.686 Saurav as DIONISIO?BLEA [phone] Mi dichossein [address] 2021-12-15 2021-12-15 Office Pa Jaffe 1.2.840.1 [id number] Univers 10:00:00 11:19:49 Visit 09765.1.1 ity of 3.412.2.7 [place] .3.424418 .8 [facility] 2021-12-15 2021-12-15 Outpatient PA CEDENO MDA [facility] [id number] 09:58:08 11:19:49 Charly [facility] 2021-12-15 2021-12-15 Outpatient PA CEDENO MDA [facility] [id number] 09:05:37 09:05:37 Charly [place] 2021-12-15 2021-12-15 Ancillary Pa Jaffe 1.2.840.1 [id number] Univers 08:00:00 08:15:00 Procedure 53871.1.1 it y of 3.412.2.7 [place] .3.320528 MD Webster8 [facility] 2021-12-15 2021-12-15 Travel 1.2.840.1 1.2.100.427 [id number] Univers 00:00:00 00:00:00 34243.1.1 350.1.13.41 ity of 3.412.2.7 [place].3.698 [place] .3.723100 084.8 .8 [facility] 2021-12-01 2021-12-01 Outpatient HUDSON SERRANO [facility] [id number] Univers 09:40:00 09:40:00 HUDSON JUARES [facility] 2021-11-13 2021-11-13 Outpatient HUDSON SERRANO [facility] [id number] Univers 10:20:00 11:03:35 HUDSON JUARES [facility] 2021-11-13 2021-11-13 Office [facility] 1.2.840.114 [id number] Univers 10:20:00 11:03:35 Visit [facility] 350.1.13.10 ity of [place] 4.2.7.2.686 Saurav as DIONISIO?BLEA [phone] Mi ruben [address] MEDICAL OFFICE BUILDING 2021-11-12 2021-11-12 Outpatient Annie HEARD [facility] [id number] Univers 12:54:47 23:59:00 [facility] 2021-11-12 2021-11-12 Outpatient Annie HEARD [facility] [id number] Univers 12:54:47 23:59:00 SENDIL [facility] 2021-11-03 2021-11-03 Telephone Malaika [facility] 1.2.840.114 [id number] Univers 00:00:00 00:00:00 [facility] 350.1.13.10 ity of [place] 4.2.7.2.686 Saurav as DIONISIO?BLEA [phone] Mi ruben ROSADO [address] [place] [address] [facility] 2021-11-02 2021-11-02 Outpatient R HUDSON JUARES [facility] [id number] Univers 08:40:00 09:11:26 HUDSON JUARES ity [facility] 2021-11-02 2021-11-02 Office Malaika [facility] 1.2.840.114 [id number] Univers 08:40:00 09:11:26 Visit [facility] 350.1.13.10 ity [facility] 4.2.7.2.686 Saurav as DIONISIO?BLEA [id number] Mi ruben [address] [facility] 2021-10-14 2021-10-14 Telephone [facility] 1.2.840.114 [id number] Univers 00:00:00 00:00:00 Margaux SHELBY 350.1.13.10 ity [facility] 4.2.7.2.[place] [id number] Mi dical NAL [address] [place] [address] 2021-09-10 2021-09-10 Outpatient R LUPE [facility] [id number] Univers 09:00:00 09:43:06 MARGAUX rod [facility] 2021-09-10 2021-09-10 Nurse Nurse, [facility] 1.2.840.114 [id number] Univers 09:00:00 09:20:00 Visit Margaux Andrade 350.1. 13.10 ity [facility] 4.2.7.2.[place] [id number] Mi dical NAL 044 [facility] 2021-09-01 2021-09-01 Office Pa Jaffe 1.2.840.1 [id number] Univers 10:00:00 11:32:24 Visit 89572.1.1 ity of 3.412.2.7 [place] .3.591636 .8 [facility] 2021-09-01 2021-09-01 Outpatient PA CEDENO [facility] [id number] 09:18:29 11:32:24 Charly [facility] 2021-09-01 2021-09-01 Outpatient JV PA JAFFE [facility] [id number] 08:54:29 08:54:29 Charly [place] 2021-09-01 2021-09-01 Ancillary aP Jaffe 1.2.840.1 [id number] Univers 08:00:00 08:15:00 Procedure 65291.1.1 it y of 3.412.2.7 [place] .3.482228 .8 [facility] 2021-09-01 2021-09-01 Travel 1.2.840.1 1.2.176.379 [id number] Univers 00:00:00 00:00:00 08667.1.1 350.1.13.41 ity of 3.412.2.7 2.[place].7.3.698 [place] .3.381255 084.8 .8 [facility] 2021-08-31 2021-08-31 Office [facility] 1.2.010.737 [id number] Univers 16:15:00 16:15:00 Visit Hudson Kelley [facility] 350.1.13.10 it y of [place] 4.2.7.2.686 Saurav as DIONISIO?BLEA [id number] Mi ruben [facility] [address] [facility] OFF[facility] 2021-08-31 2021-08-31 [facility] [id number] Univers 16:15:00 14:01:21 [facility] 2021-08-31 2021-08-31 [facility] [id number] Univers 16:15:00 14:01:21 HUDSON [facility] 2021-08-28 2021-08-28 [facility]phone [facility] 1.2.840.114 [id number] Univers 00:00:00 00:00:00 Margaux SHELBY 350.1.13.10 ity of [place].2.[place] [phone] [address] 2021-08-28 2021-08-28 Telephone [facility] 1.2.840.114 [id number] Univers 00:00:00 00:00:00 Margaux SHELBY 350.1.13.10 ity of [place].2.[place] [id number] [address] 2021-08-21 2021-08-21 Orders Doctor GERTRUDE 1.2.840.114 [id number] Univers 00:00:00 00:00:00 Only Unassigned, ARTHUR 350.1.13.10 ity of [place] [facility] 4.2.7.2.686 Saurav as [id number] [address] 2021-08-18 2021-08-18 [facility] 1.2.840.114 [id number] Univers 13:12:39 23:59:00 Encounter Margaux SHELBY 350.1.13.10 ity of [place]2.[place].2.[place] [id number] [facility] [address] [place] 2021-08-18 2021-08-18 Outpatient R [facility] [id number] Univers 11:00:00 12:58:15 MARGAUX rod of [facility] 2021-08-18 2021-08-18 Office [facility] 1.2.840.114 [id number] Univers 11:00:00 12:58:15 Visit Margaux SHELBY 350.1.13.10 ity of [place].2.[place] [id number] [address] 2021-08-18 2021-08-18 Orders Doctor LOREDO 1.2.840.114 [id number] Univers 00:00:00 00:00:00 Only Unassigned, ARTHUR 350.1.13.10 ity of [place] [facility] 4.2.7.2.686 Saurav as [phone] [facility] [address] [place] 2021-06-18 2021-06-18 [employer] 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 13.10 ity [facility] 4.2.7.2.[place] [phone] Mi dical [facility] 353 [facility] 2021-06-18 2021-06-18 [facility] [id number] Univers 08:00:00 08:58:53 MARGAUX ity of [facility] 2021-06-18 2021-06-18 [facility] 1.2.840.114 [id number] Univers 08:00:00 08:58:53 Visit Margaux SHELBY 350.1.13.10 ity of [place].2.[place] [phone] [facility] 231 [facility] 2021-06-18 2021-06-18 Orders Doctor LOREDO 1.2.840.114 [id number] Univers 00:00:00 00:00:00 Only Unassigned, ARTHUR 350.1.13.10 ity of [place] [facility] 4.2.7.2.686 Saurav as [id number] [address] 2021-06-02 2021-06-02 Office Pa Jaffe 1.2.840.1 [id number] Univers 13:45:00 13:48:08 Visit 49639.1.1 ity of 3.412.2.7 [place] .3.864458 .8 [facility] 2021-06-02 2021-06-02 Outpatient PA CEDENO MDA, MDA [id number] 12:52:06 13:48:08 Charly [place] 2021-06-02 2021-06-02 Ancillary Dolores Fernandez2.840.1 [id number] Univers 12:00:00 12:15:00 Procedure Hudson Gottlieb 08675.1.1 it y of 3.412.2.7 [place] .3.371080 MD Webster8 [facility] 2021-06-02 2021-06-02 Outpatient JV FERNANDEZ MDA MDA [id number] 11:48:16 11:48:16 HUDSON [facility] 2021-06-02 2021-06-02 Travel 1.2.840.1 1.2.078.452 [id number] Univers 00:00:00 00:00:00 89572.1.1 350.1.13.41 ity of 3.412.2.7 [place].7.3.698 [place] .3.978294 084.8 .8 [facility] 2021-05-20 2021-05-20 [facility] 1.2.840.114 [id number] Univers 00:00:00 00:00:00 Secure Msg Margaux SHELBY 350.1.13.10 ity [facility] 4.2.7.2.[place] [id number] Mi dic[address] 2021-05-06 2021-05-06 Orders Doctor GERTRUDE 1.2.840.114 [id number] Univers 00:00:00 00:00:00 Only Unassigned, ARTHUR 350.1.13.10 ity of [place] [facility] 4.2.7.2.686 Saurav as [id number] [address] 2021-05-01 2021-05-01 Telephone [place], 1.2.840.1 [id number] Univers 00:00:00 00:00:00 Hudson Gottlieb 82654.1.1 ity of 3.412.2.7 [place] .3.354716 .8 [facility] 2021-04-24 2021-04-24 Outpatient R THI SANDS [facility] [id number] Univers 09:30:00 10:40:29 THI SANDS ity of [facility] 2021-04-24 2021-04-24 Office Meghan [facility] 1.2.840.114 [id number] Univers 09:30:00 10:40:29 Visit Thi SHELBY 350.1.13.10 ity [facility] 4.2.7.2.686 Therese WILLIS [id number] [address] 2021-04-24 2021-04-24 Outpatient R THI SANDS [facility] [id number] [facility] 09:30:00 09:30:00 THI SANDS [facility] 2021-04-21 2021-04-21 Outpatient PA CEDENO MDA MDA [id number] 10:56:40 12:08:56 Charly o magdi 2021-04-21 2021-04-21 Outpatient EL MERI, MDA MDA [id number] 10:30:16 10:30:16 REBECCA [facility] 2021-04-08 2021-04-09 Outpatient PA CEDENO [facility] [id number] 09:05:00 12:45:00 Lyle Cedenoers o magdi 2021-04-08 2021-04-08 Outpatient EL POPAT, MDA MDA [id number] 11:36:11 11:36:11 SUNSHINE Cedenoers o magdi 2021-04-08 2021-04-08 Outpatient EL POPAT, MDA MDA [id number] 09:47:12 09:47:12 SUNSHINE Cedenoers o magdi 2021-04-07 2021-04-07 Outpatient EL ILIESCU, MDA MDA [id number] 14:34:33 23:59:00 DELIO Parks o magdi 2021-04-07 2021-04-07 Outpatient PA CEDENO MDA MDA [id number] 13:38:23 15:46:11 Charly o magdi 2021-04-07 2021-04-07 Outpatient EL ROAURORAA, MDA MDA [id number] 10:42:44 14:33:00 HUDSON Parks o magdi 2021-04-07 2021-04-07 Outpatient EL ROORDA, MDA MDA [id number] 13:38:41 13:38:41 HUDSON Parks o magdi 2021-04-07 2021-04-07 Outpatient PA CEDENO MDA MDA [id number] 12:17:20 13:36:46 Charly o magdi 2021-04-07 2021-04-07 Outpatient JV FERNANDEZ MDA MDA [id number] MD 10:05:58 10:05:58 HUDSON [place] 2021-04-07 2021-04-07 Outpatient JV FERNANDEZ MDA MDA [id number] 10:05:25 10:05:25 HUDSON [place] 2021-04-07 2021-04-07 Outpatient JV FERNANDEZ MDA MDA [id number] 10:04:33 10:04:33 HUDSON [place] 2021-04-07 2021-04-07 Outpatient JV FERNANDEZ MDA MDA [id number] 09:41:57 09:56:25 HUDSON [place] 2021-04-07 2021-04-07 [facility] 1.2.840.114 [id number] Univers 00:00:00 00:00:00 Margaux SHE[place] 350.1.13.10 [place] [phone] [facility] 231 [facility] 2021-04-02 2021-04-02 [facility] 1.2.840.114 [id number] Univers 00:00:00 00:00:00 Margaux SHELBY 350.1.13.10 [facility] [place] [phone] [facility] 044 [facility] 2021-04-02 2021-04-02 [facility] 1.2.840.114 [id number] Univers 00:00:00 00:00:00 Margaux SHELBY 350.1.13.10 [facility] [place] [phone] [facility] 231 [facility] 2021-03-31 2021-03-31 [facility] 1.2.840.114 [id number] Univers 14:26:00 15:49:00 Chelsea SHELBY 350.1.13.10 it[facility] [place] [phone] [facility] [address] [place] 2021-03-31 2021-03-31 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 13.10 ity [facility] [place] [phone] [facility] 353 [facility] 2021-03-31 2021-03-31 Outpatient R LUPE [facility] [id number] Univers 09:45:00 09:45:00 MARGAUX rod [facility] 2021-03-31 2021-03-31 [facility] 1.2.840.114 [id number] Univers 08:20:00 09:41:39 Visit Margaux SHE[place] 350.1.13.10 [place] [phone] [address] 2021-03-31 2021-03-31 Outpatient R LUPE [facility] [id number] Univers 08:20:00 09:41:39 MARGAUX rod [facility] 2021-03-31 2021-03-31 [facility] [id number] Univers 08:00:00 09:41:04 MARGAUX rod [facility] 2021-03-31 2021-03-31 Office Lupe [facility] 1.2.840.114 [id number] Univers 08:00:00 09:41:04 Visit Margaux SHELBY 350.1.13.10 [place] [phone] [address] 2021-02-03 2021-02-03 Orders Doctor LOREDO 1.2.840.114 [id number] Univers 00:00:00 00:00:00 Only Unassigned, ARTHUR 350.1.13.10 [place] of [place] [facility] 4.2.7.2.686 Saurav as [phone] [address] 2021-01-23 2021-01-23 [facility] 1.2.840.114 [id number] Univers 00:00:00 00:00:00 Margaux A [place] 350.1.13.10 ity [facility] [place] [phone] Mi ruben OCAMPO [address] [facility] 2020-12-08 2020-12-08 Telephone [facility] 1.2.840.114 [id number] Univers 00:00:00 00:00:00 Margaux A [place] 350.1.13.10 [place] [phone] Mi ruben [facility] 044 [facility] 2020-11-25 2020-11-25 Outpatient PA CEDENO [facility] [id number] 08:33:34 09:49:29 Charly [place] 2020-11-25 2020-11-25 Outpatient PA CEDENO [facility] [id number] 07:55:39 07:55:39 Charly [place] 2020-11-21 2020-11-21 [place] [facility] 1.2.840.114 [id number] Univers 00:00:00 00:00:00 Margaux A [place] 350.1.13.10 [place] [phone] Mi ruben [address] 2020-11-17 2020-11-17 [place] [facility] 1.2.840.114 [id number] Univers 00:00:00 00:00:00 Margaux A [place] 350.1.13.10 [place] [phone] Mi ruben [facility] 044 [facility] 2020-10-27 2020-10-27 [facility] 1.2.840.114 [id number] Univers 00:00:00 00:00:00 Secure Msg Margaux A [place] 350.1.13.10 [place] [phone] Mi dical nal 044 [facility] 2020-10-17 2020-10-17 Telephone Lupe [facility] 1.2.840.114 [id number] [facility] 00:00:00 00:00:00 Margaux [place] 350.1.13.10 [place] [phone] Mi dical nal 044 [facility] 2020-10-16 2020-10-16 Patient Lupe [facility] 1.2.840.114 [id number] [facility] 00:00:00 00:00:00 Secure Msg Margaux [place] 350.1.13.10 [place] [phone] Mi dical nal 044 [facility] 2020-10-13 2020-10-13 [facility] 1.2.840.114 [id number] [facility] 00:00:00 00:00:00 Management Margaux [place] 350.1.13.10 [place] [phone] Mi dical nal 231 [facility] 2020-09-25 2020-09-25 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 13.10 [place] of [place] [phone] Mi dical nal 353 [facility] 2020-09-25 2020-09-25 Office Lupe [facility] 1.2.840.114 [id number] [facility] 07:55:00 09:23:38 Visit Margaux Shelby 350.1.13.10 [place] [phone] Mi dical nal 231 [facility] 2020-09-25 2020-09-25 Outpatient Annie ANDRADE [facility] [id number] [facility] 08:00:00 08:00:00 MARGAUX rod of [facility] 2020-09-02 2020-09-02 Outpatient JV VUONG MDA [id number] 09:17:35 23:59:00 Charly o magdi 2020-09-02 2020-09-02 Outpatient PA CEDENO MDA MDA [id number] 09:37:08 11:39:24 Charly o magdi 2020-09-02 2020-09-02 Outpatient PA CEDENO MDA MDA [id number] 08:10:13 09:16:00 Charly o magdi 2020-07-14 2020-07-14 [facility] 1.2.840.114 [id number] Univers 00:00:00 00:00:00 Margaux Shelby 350.1.13.10 [place] [phone] Mi ruben [facility] 231 [facility] 2020-06-16 2020-06-16 Orders Doctor GERTRUDE 1.2.840.114 [id number] Univers 00:00:00 00:00:00 Only Unassigned, ARTHUR 350.1.13.10 [place] of [place] [facility] 4.2.7.2.686 Saurav as [phone] [address] 2020-06-02 2020-06-02 Orders Doctor GERTRUDE 1.2.840.114 [id number] Univers 00:00:00 00:00:00 Only Unassigned, ARTHUR 350.1.13.10 it[place] of [place] [facility] 4.2.7.2.686 Saurav as [phone] [address] 2020-06-02 2020-06-02 Telephone [facility] [place] 1.2.898.265 [id number] Univers 00:00:00 00:00:00 [facility] 350.1.13.10 it y of Surgical 4.2.7.2.686 Saurav as Specialti [phone] Mi dical 198 [facility] 2020-05-28 2020-05-28 Office [facility] 1.2.840.114 [id number] Univers 14:09:58 14:24:58 Visit Malou [facility] 350.1.13.10 it y of Surgical 4.2.7.2.686 Saurav [facility] [phone] Mi dical es 198 [facility] 2020-05-28 2020-05-28 Outpatient [facility] [id number] [facility] 14:15:00 14:15:00 MALOU [facility] 2020-05-27 2020-05-27 Outpatient PA CEDENO MDA MDA [id number] 09:28:25 23:59:00 Charly o magdi 2020-05-27 2020-05-27 Outpatient PA CEDENO MDA MDA [id number] 09:28:04 23:59:00 Charly lisy [place] 2020-05-27 2020-05-27 Outpatient NAGA MAHER MDA MDA [id number] 10:46:11 12:58:56 Charly lisy [place] 2020-05-27 2020-05-27 Outpatient PA CEDENO MDA MDA [id number] 10:10:51 10:43:09 Charly o magdi 2020-05-27 2020-05-27 Outpatient NAGA MAHER MDA MDA [id number] 08:30:26 09:27:00 Charly lisy [place] 2020-05-14 2020-05-14 [facility] 1.2.840.114 [id number] Univers 09:44:25 23:59:00 Encounter [facility] 350.1.13.10 ity [facility] 4.2.7.2.686 [facility] [phone] [facility] [address] [place] 2020-05-14 2020-05-14 Outpatient [facility] [id number] Univers 00:00:00 00:00:00 HUDSON [facility] 2020-05-14 2020-05-14 Telephone [facility] [place] 1.2.344.208 [id number] Univers 00:00:00 00:00:00 Malou [facility] 350.1.13.10 it y of Surgical 4.2.7.2.686 Saurav as Specialti [phone] Mi dical es 198 [facility] 2020-05-10 2020-05-10 Outpatient [facility] [id number] Univers 13:30:00 13:30:00 ity of [facility] 2020-05-05 2020-05-05 Telephone Mirlande [facility] 1.2.918.260 [id number] Univers 00:00:00 00:00:00 [facility] 350.1.13.10 it y of Surgical 4.2.7.2.686 Saurav as Specialti [phone] Mi dical es 198 [facility] 2020-05-01 2020-05-01 [facility]phone [facility] 1.2.840.114 [id number] Univers 00:00:00 00:00:00 Hudson Kelley avocadostore 350.1.13.10 it y of Surgical 4.2.7.2.686 Saurav as Specialti [phone] Mi dical es 198 [facility] 2020-04-30 2020-04-30 [facility] 1.2.627.168 [id number] Univers 12:50:30 13:24:25 Visit Hudson Kelley avocadostore 350.1.13.10 it y of Surgical 4.2.7.2.686 Saurav as Specialti [phone] Mi dical es 198 [facility] 2020-04-30 2020-04-30 Outpatient [facility] [id number] Univers 13:00:00 13:00:00 HUDSON tarangomartínez [facility] 2020-04-30 2020-04-30 Orders Doctor GERTRUDE 1.2.840.114 [id number] Univers 00:00:00 00:00:00 Only Unassigned, ARTHUR 350.1.13.10 it[place] of [place] [facility] 4.2.7.2.686 Saurav as [phone] [address] 2020-04-29 2020-04-29 [facility]phone [facility] 1.2.840.114 [id number] Univers 00:00:00 00:00:00 [place] Kelley avocadostore 350.1.13.10 it y of Surgical 4.2.7.2.686 Saurav as Specialti [phone] Mi dical [address] [place] 2020-04-12 2020-04-12 Outpatient [facility] [id number] Univers 14:40:00 14:40:00 [facility] 2020-02-19 2020-02-19 Outpatient PA CEDENO MDA MDA [id number] 11:49:26 23:59:00 Charly [place] 2020-02-19 2020-02-19 Outpatient PA CEDENO MDA MDA [id number] MD 10:22:05 11:33:09 Charly o magdi 2020-02-19 2020-02-19 Outpatient JV FERNANDEZ, MDA MDA [id number] MD 09:45:09 09:45:09 HUDSON [place] 2020-02-19 2020-02-19 Outpatient JV FERNANDEZ, MDA MDA [id number] MD 09:44:34 09:44:34 HUDSON Parks o magdi 2020-02-06 2020-02-07 Outpatient PA CEDENO [facility] [id number] 05:53:00 13:01:00 esdras CedenoCharly o magdi 2020-02-05 2020-02-05 Outpatient JV ABBOTT, MDA MDA [id number] MD 12:21:43 15:31:31 NESS Parks o magdi 2020-02-05 2020-02-05 Outpatient JV FERNANDEZ, MDA MDA [id number] MD 10:56:40 13:05:13 HUDSON Parks o magdi 2020-02-05 2020-02-05 Outpatient PA CEDENO MDA MDA [id number] 08:54:13 11:03:57 Charly [place] 2020-02-04 2020-02-04 Outpatient EL ROORDA, MDA MDA [id number] MD 13:25:33 23:59:00 HUDSON Parks o magdi 2020-02-04 2020-02-04 Outpatient EL ROORDA, MDA MDA [id number] MD 15:39:17 15:39:17 HUDSON Parks o magdi 2020-02-04 2020-02-04 Outpatient EL ROORDA, MDA MDA [id number] MD 14:00:49 14:16:12 HUDSON Parks o magdi 2020-02-04 2020-02-04 Outpatient EL ROORDA, MDA MDA [id number] 13:48:23 13:58:27 HUDSON [place] 2020-02-04 2020-02-04 Outpatient JV FERNANDEZ MDA MDA [id number] 13:04:46 13:04:46 HUDSON fairbansk 2020-02-04 2020-02-04 Outpatient JV FERNANDEZ MDA MDA [id number] 13:00:00 13:00:00 HUDSON [place] 2020-01-17 2020-01-17 Outpatient NAGA MAHER MDA MDA [id number] 15:48:51 16:10:08 Charly [place] 2020-01-07 2020-01-07 [facility] 1.2.840.114 [id number] Univers 13:13:24 23:59:00 Encounter Hudson Kelley avocadostore 350.1.13.10 ity of Surgical 4.2.7.2.686 Saurav as Specialti [phone] Mi dical es 809 [facility] 2020-01-07 2020-01-07 Office [facility] 1.2.314.838 [id number] [facility] 13:08:41 13:57:49 Visit Hudson Haider 350.1.13.10 it y of Surgical 4.2.7.2.686 Saurav as Specialti [phone] Mi dical es 198 [facility] 2020-01-07 2020-01-07 [facility] [id number] Univers 13:30:00 13:30:00 HUDSON ity of [facility] 2019-11-09 2019-11-09 Telephone [facility] 1.2.840.114 [id number] Univers 00:00:00 00:00:00 [place] 350.1.13.10 [place] [phone] Mi dical nal 198 [facility] 2019-10-15 2019-10-15 Telephone [facility] 1.2.840.114 [id number] Univers 00:00:00 00:00:00 [place] Kelley avocadostore 350.1.13.10 it y of Surgical 4.2.7.2.686 Saurav as Specialti [phone] Mi dical 198 [facility] 2019-08-30 2019-08-30 Outpatient EL YEVGENIY FERNANDEZ MDA [id number] Colleen2 12:40:41 12:40:41 HUDSON [place] 2019-05-28 2019-05-28 Outpatient [facility] [id number] Univers 10:45:00 10:45:00 WHITNEY rod [facility] 2019-05-24 2019-05-24 Telephone [facility] 1.2.840.114 [id number] 00:00:00 00:00:00 Whitney [place] 350.1.13.10 [place] 4.2.7.2.686 Professio [phone] [address] 2019-05-24 2019-05-24 Telephone [facility] 1.2.840.114 [id number] [facility] 00:00:00 00:00:00 Whitney [place] 350.1.13.10 [place] [phone] Mi dical [address] 2019-05-03 2019-05-10 Office [facility] 1.2.535.479 [id number] [facility] 15:54:16 11:55:38 Visit Whitney [place] 350.1.13.10 [place] [phone] [address] 2019-05-03 2019-05-10 Office [facility] 1.2.525.937 [id number] 15:54:16 11:55:38 Visit Whitney [place] 350.1.13.10 [place] 4.2.7.2.686 Professio [phone] [address] 2019-05-08 2019-05-08 Outpatient JV MDA MDA [id number] 08:12:34 08:13:00 Charly [place] 2019-05-03 2019-05-03 Outpatient [facility] [id number] [facility] 16:00:00 16:00:00 WHITNEY rod [facility] 2019-04-30 2019-04-30 Telephone [facility] 1.2.840.114 [id number] Univers 00:00:00 00:00:00 Hudson Kelley [facility] 350.1.13.10 it y of Surgical 4.2.7.2.686 Saurav as Specialti [phone] [facility] es 198 [facility] 2019-04-30 2019-04-30 Orders Doctor GERTRUDE 1.2.840.114 [id number] Univers 00:00:00 00:00:00 Only Unassigned, ARTHUR 350.1.13.10 it[place] of [place] [facility] 4.2.7.2.686 Saurav as [phone] [address] 2019-04-30 2019-04-30 Telephone [facility] 1.2.840.114 [id number] Univers 00:00:00 00:00:00 Hudson Kelley [facility] 350.1.13.10 it y of Surgical 4.2.7.2.686 Saurav as Specialti [phone] [facility] es 198 [facility] 2019-04-27 2019-04-27 Office [facility] 1.2.634.095 [id number] Univers 10:07:02 10:54:01 Visit Hudson Kelley [facility] 350.1.13.10 it y of Surgical 4.2.7.2.686 Saurav as Specialti [phone] [facility] 198 [facility] 2019-04-27 2019-04-27 Orders Doctor GERTRUDE 1.2.840.114 [id number] Univers 00:00:00 00:00:00 Only Unassigned, ARTHUR 350.1.13.10 ity of [place] [facility] 4.2.7.2.686 Saurav as [phone] [facility] [address] [place] 2019-04-24 2019-04-24 Transition Arcenio Hugginsmagdi 1.2.840.114 [id number] Univers 00:00:00 00:00:00 of Care Norma Martinoy 350.1.13.10 it [place] [phone] [facility] [address] 2019-04-21 2019-04-23 Outpatient X MADHURI [facility] [id number] Univers 20:10:53 11:30:00 MERCY ity of [facility] 2019-04-21 2019-04-23 Emergency Salvador Angeles [facility] 1.2.840 .114 [id number] Univers 20:10:53 11:30:00 Benji Dhaliwal [place] 350.1.13.10 it[place] [phone] [place] [address] [place] 2019-04-21 2019-04-21 Orders Doctor GERTRUDE 1.2.840.114 [id number] Univers 00:00:00 00:00:00 Only Unassigned, ARTHUR 350.1.13.10 ity of [place] [facility] 4.2.7.2.686 Saurav as [phone] [address] 2019-04-11 2019-04-11 Orders Doctor GERTRUDE 1.2.840.114 [id number] Univers 00:00:00 00:00:00 Only Unassigned, ARTHUR 350.1.13.10 ity of [place] [facility] 4.2.7.2.686 Saurav as [phone] [address] 2019-04-05 2019-04-05 Telephone [facility] 1.2.840.114 [id number] Univers 00:00:00 00:00:00 [place] Kelley avocadostore 350.1.13.10 it y of Surgical 4.2.7.2.686 Saurav as Specialti [phone] Mi dical es 198 [facility] 2019-04-04 2019-04-04 Hospital [facility] 1.2.840.114 [id number] Univers 14:29:00 23:59:00 Encounter [place] Kelley avocadostore 350.1.13.10 ity of Surgical 4.2.7.2.686 Saurav as Specialti [phone] Me dical es 809 [facility] 2019-04-04 2019-04-04 Office [facility] 1.2.445.528 [id number] Univers 14:27:28 15:06:25 Visit Hudson Kelley avocadostore 350.1.13.10 it y of Surgical 4.2.7.2.686 Saurav as Specialti [phone] Mi dical es 198 [facility] 2019-04-04 2019-04-04 Orders Doctor GERTRUDE 1.2.840.114 [id number] Univers 00:00:00 00:00:00 Only Unassigned, ARTHUR 350.1.13.10 ity of [place] [facility] 4.2.7.2.686 [facility] as [phone] [address] Results Test Description Test Time Test Comments Results Result Comments Source POCT HEMOGLOBIN A1C TEST 2022-02-16 18:12:00 Test Item Value Reference Range Interpretation Comme nts POCT HBA1C (test code = 4548-4) 7.1 % 4-6 A Lab Interpretation (test code = 58902-0) [facility]normal [facility] [id number] 18:12:00 Test Item Value Reference Range Interpretation Comments POCT HBA1C (test code = 4548-4) 7.1 % 4-6 A Lab Interpretation (test code = Abnormal 29394-0) [facility]
[2022-04-30] MEDS ORDERED: NA CHLORIDE 0.9% 1,000 ML ONE ×2 (11:44→12:42)
[2022-04-30 12:13] LABS: Absolute Lymphocytes (CBC) 1.9 K/uL (0.7-4.9); Hematocrit 43.1 % (39.6-49.0); Lymphocytes % 19.7 % (15.3-44.8); MCV 92.3 fL (80-100); MPV 7.7 fL (7.6-11.3); RBC Red Blood Cell Count 4.67 M/uL (4.33-5.43)
[2022-04-30 12:33] LABS: Albumin 3.9 g/dL (3.4-5.0); Bilirubin Total 0.5 mg/dL (0.2-1.0); Potassium 4.3 mmol/L (3.5-5.1); Protein, Total 7.4 g/dL (6.4-8.2)
[2022-04-30] MEDS ORDERED: MORPHINE 4 MG/ML SYR ONE (12:42)
[2022-04-30] MEDS ORDERED: CLINDAMYCIN 900MG/D5W 900 MG/50 ML IVPB IV ONE (12:42)
[2022-04-30] MEDS ORDERED: NA CHLORIDE 0.9% 50 ML ONE (12:42)
[2022-04-30] MEDS ORDERED: ONDANSETRON 4 MG/2 ML VIAL ONE (12:42)
[2022-04-30] MEDS ORDERED: CEFTRIAXONE 1000 MG/VIAL ONE ×2 (12:42→14:24)
--- NOTE | 2022-04-30 13:17 | RAD REPORT ---
EXAM DESCRIPTION: CT - Soft Tissue Neck W/Contr CLINICAL HISTORY: FACIAL PAIN Lower molar pain for 1 month. Left-sided facial and neck swelling COMPARISON: No comparisons TECHNIQUE Axial thin cut CT images of the neck, performed following intravenous administration of 95 mL Isovue-300. Multiplanar reformats were generated and reviewed. All CT scans are performed using dose optimization technique as appropriate and may include automated exposure control or mA/KV adjustment according to patient size. FINDINGS: A lenticular subperiosteal ill-defined marginally enhancing fluid collection measuring 11. 4 x 4.5 millimeter in greatest axial dimensions is seen along the lingular cortex of the left mandibu lar body, axial image 48/101. This is adjacent to subtle periodontal lucencies along the roots of the left mandibular second molar, without evidence of cortical breakthrough or a fluid collection. Inflammatory fat stranding extends along the soft tissues adjacent to the inferior margin of the sonny ibular body. Mild asymmetric platysmal thickening. Nasopharyngeal tissues are normal in appearance. Fossae of Rosenmller are normal. Parapharyngeal fat planes are symmetric. Tongue base structures are normal. Epiglottis and aryepiglottic folds are normal. Piriform sinuses are well aerated. The vocal cords are normal in appearance. Salivary glands are normal in appearance. Upper lung hammond are clear. Included intracranial contents are unremarkable. IMPRESSION: Inflammatory changes along the lingular cortex of the left mandibular body with a small subperiosteal abscess measuring 1.1 centimeter in greatest dimension. Adjacent subtle periodontal luanne encies at the roots of the left mandibular second molar. No cortical breakthrough or a periapical fluid collection. The findings were communicated to Naresh Eiwng on 04/30/2022 at 13:13 hours.
--- NOTE | 2022-04-30 14:17 | ER ---
Nurse's Notes [facility] Name: Norman Garibay Age: 72 yrs Sex: Male : 1950 Arrival Date: 04/30/2022 Time: 11:24 Bed 19 Private MD: Diagnosis: Dental root caries-1.1 CM SUBPERIOSTEAL ABSCESS;Dental caries, unspecified Presentation: 04/30 11:26 Chief complaint: Lower molar pain x 1 month, left sided facial and neck swelling x 2 hb weeks. Coronavirus screen: At this time, the client does not indicate any symptoms associated with coronavirus-19. Ebola Screen: No symptoms or risks identified at this time. Initial Sepsis Screen: Does the patient meet any 2 criteria? No. Patient's initial sepsis screen is negative. Does the patient have a suspected source of infection? No. Patient's initial sepsis screen is negative. Risk Assessment: Do you want to hurt yourself or someone else? Patient reports no desire to harm self or others. Onset of symptoms was April 2022. 11:26 Method Of Arrival: Ambulatory hb 11:26 Acuity: ANTHONY 3 hb Triage Assessment: 14:29 General: Behavior is. mb9 Historical: - Allergies: 11:27 No Known Allergies; hb - Immunization history:: Adult Immunizations up to date. - Social history:: Smoking status: . - Family history:: not pertinent. Screenin:00 [facility] ED Fall Risk Assessment (Adult) History of falling in the last 3 months, mb9 including since admission No falls in past 3 months (0 pts) Confusion or Disorientation No (0 pts) Intoxicated or Sedated No (0 pts) Impaired Gait No (0 pts) Mobility Assist Device Used No (0 pt) Altered Elimination No (0 pt) Score/Fall Risk Level 0 - 2 = Low Risk Oriented to surroundings, Maintained a safe environment, Educated pt \T\ family on fall prevention, incl call for assistance when getting out of bed. Abuse screen: Denies threats or abuse. Nutritional screening: No deficits noted. Tuberculosis screening: No symptoms or risk factors identified. Assessment: 12:00 General: Appears in no apparent distress. Pain: Complains of pain in left side of neck mb9 Pain does not radiate. Pain currently is 5 out of 10 on a pain scale. Quality of pain is described as throbbing, Pain began 2 weeks ago Is continuous. Neuro: Level of Consciousness is awake, alert, obeys commands, Oriented to person, place, time, situation, Appropriate for age. Cardiovascular: Rhythm is regular. Respiratory: Airway is patent Respiratory effort is even, unlabored, Respiratory pattern is regular, symmetrical, Denies shortness of breath. GI: Abdomen is round non-distended, Bowel sounds present X 4 quads. Abd is soft and non tender X 4 quads. : No signs and/or symptoms were reported regarding the genitourinary system. EENT: swelling and redness around bilateral eyes. Derm: Skin is pink, warm \T\ dry. swelling to left lateral neck. Musculoskeletal: Range of motion: intact in all extremities. 12:53 Reassessment: pt taken to CT via stretcher. mb9 13:07 Reassessment: No changes from previously documented assessment. Patient and/or family mb9 updated on plan of care and expected duration. Pain level reassessed. Patient is alert, oriented x 3, equal unlabored respirations, skin warm/dry/pink. Patient states symptoms have improved. 14:29 Reassessment: No changes from previously documented assessment. Patient and/or family mb9 updated on plan of care and expected duration. Pain level reassessed. Patient is alert, oriented x 3, equal unlabored respirations, skin warm/dry/pink. Patient states symptoms have improved. Vital Signs: 11:26 BP 152 / 77; Pulse 69; Resp 20; Temp 98.3; Pulse Ox 98% on R/A; Weight 127.01 kg; hb Height 5 ft. 11 in. (180.34 cm); Pain 4/10; 12:31 BP 115 / 71; Pulse 72; Resp 20; Pulse Ox 100% ; mb9 13:07 BP 139 / 63; Pulse 62; Resp 18; Pulse Ox 98% on R/A; mb9 14:29 BP 113 / 52; Pulse 88; Resp 20; Pulse Ox 99% ; mb9 11:26 Body Mass Index 39.05 (127.01 kg, 180.34 cm) hb ED Course: 11:24 Patient arrived in ED. rg4 11:27 Triage completed. hb 11:27 Arm band placed on. hb 11:29 Naresh Ewing MD is Attending Physician. brianne 11:30 Placed in gown. Bed in low position. Call light in reach. Side rails up X 1. Client mb9 placed on continuous cardiac and pulse oximetry monitoring. NIBP monitoring applied. water softener servicer on. 11:37 Mabel Jacques, GAETANO is Primary Nurse. mb9 12:11 Inserted saline lock: 22 gauge in left wrist, using aseptic technique. Blood collected. mb9 13:03 CT Soft Tissue Neck W/contr In Process Unspecified. EDMS 13:08 No provider procedures requiring assistance completed. mb9 13:48 called and left a message for Dr. Lewis to call Dr. Ewing for patient consultation. eb 14:[address] Lewis with Dr. Ewing for patient consultation. eb 14:16 Chucho Lewis DDS is Referral Physician. brianne 14:29 IV discontinued, intact, bleeding controlled, No redness/swelling at site. Pressure mb9 dressing applied. Administered Medications: 12:11 Drug: NS 0.9% 1000 ml Route: IV; Rate: 125 ml/hr; Site: left wrist; mb9 12:45 Drug: Rocephin (cefTRIAXone) 1 grams Route: IV; Rate: per protocol; Site: left wrist; jl7 13:44 Follow up: Response: No adverse reaction; IV Status: Completed infusion mb9 12:45 Drug: NS 0.9% 500 ml Route: IV; Rate: bolus; Site: left wrist; jl7 14:28 Follow up: Response: No adverse reaction mb9 12:50 Drug: morphine 4 mg Route: IVP; Infused Over: 4 mins; Site: left wrist; jl7 12:50 Drug: Zofran (Ondansetron) 4 mg Route: IVP; Site: left wrist; jl7 13:44 Drug: Clindamycin 900 mg Route: IVPB; Infused Over: 30 mins; Site: left hand; mb9 14:17 Follow up: Response: No adverse reaction; IV Status: Completed infusion mb9 14:17 Drug: Rocephin (cefTRIAXone) 1 grams Route: IV; Rate: per protocol; Site: left hand; mb9 14:28 Follow up: Response: No adverse reaction; IV Status: Completed infusion mb9 Medication: 13:08 VIS not applicable for this client. mb9 Outcome: 14:16 Discharge ordered by . brianne 14:29 Discharged to home ambulatory. mb9 14:29 Condition: stable 14:29 Discharge instructions given to patient, Instructed on discharge instructions, follow up and referral plans. Demonstrated understanding of instructions, follow-up care, medications, Prescriptions given X 2. 14:30 Patient left the ED. [email or web address] Signatures: Dispatcher [employer] EDNaresh Moffett MD MD cha Baxter, Heather, RN RN Karen Awan rg4 Gianni Ku RN RN jl7 Margaux Henry, Mabel Yeager RN RN mb9 Corrections: (The following items were deleted from the chart) 11:28 11:26 Pulse 69bpm; Resp 20bpm; Pulse Ox 98% RA; Temp 98.3F; 127.01 kg; Height 5 ft. 11 hb in.; BMI: 39.0; Pain 4/10; hb 13:26 12:45 NS 0.9% 500 ml IV at bolus in left antecubital jl7 jl7
--- NOTE | 2022-04-30 14:17 | EDPHYS ---
Physician Documentation [facility] Name: Norman Garibay Age: 72 yrs Sex: Male : 1950 Arrival Date: 04/30/2022 Time: : Bed 19 Private MD: ED Physician Naresh Ewing HPI: 04/30 12:45 This 72 yrs old Male presents to ER via Ambulatory with complaints of Neck brianne Swelling. 12:45 The patient or guardian complains of pain, swelling, tenderness. The symptoms are brianne located on the chin and left jaw. Onset: The symptoms/episode began/occurred 3 day(s) ago. Context: The problem was sustained at an unknown location, The neck injury/problem resulted from from unknown cause. Associated signs and symptoms: Pertinent positives: chills, fever. The pain does not radiate. Modifying factors: The symptoms are alleviated by remaining still, the symptoms are aggravated by. Severity of symptoms: At their worst the symptoms were mild, in the emergency department the symptoms are unchanged. The patient has not experienced similar symptoms in the past. Historical: - Allergies: 11:27 No Known Allergies; hb - Immunization history:: Adult Immunizations up to date. - Social history:: Smoking status: . - Family history:: not pertinent. ROS: 12:45 Constitutional: Negative for fever, chills, and weight loss, Eyes: Negative for injury, brianne pain, redness, and discharge, Cardiovascular: Negative for chest pain, palpitations, and edema, Respiratory: Negative for shortness of breath, cough, wheezing, and pleuritic chest pain, Abdomen/GI: Negative for abdominal pain, nausea, vomiting, diarrhea, and constipation, Back: Negative for injury and pain, : Negative for injury, bleeding, discharge, and swelling, MS/Extremity: Negative for injury and deformity, Skin: Negative for injury, rash, and discoloration, Neuro: Negative for headache, weakness, numbness, tingling, and seizure, Psych: Negative for depression, anxiety, suicide ideation, homicidal ideation, and hallucinations, Allergy/Immunology: Negative for hives, rash, and allergies, Endocrine: Negative for neck swelling, polydipsia, polyuria, polyphagia, and marked weight changes, Hematologic/Lymphatic: Negative for swollen nodes, abnormal bleeding, and unusual bruising. 12:45 Constitutional: Positive for chills, fever. 12:45 ENT: Positive for dental pain, Teeth pain 12:45 Neck: Positive for pain with movement, pain at rest, swelling, swollen nodes, tenderness, of the face and left jaw and chin. Exam: 12:45 Constitutional: This is a well developed, well nourished patient who is awake, alert, brianne and in no acute distress. Eyes: Pupils equal round and reactive to light, extra-ocular motions intact. Lids and lashes normal. Conjunctiva and sclera are non-icteric and not injected. Cornea within normal limits. Periorbital areas with no swelling, redness, or edema. ENT: Nares patent. No nasal discharge, no septal abnormalities noted. Tympanic membranes are normal and external auditory canals are clear. Oropharynx with no redness, swelling, or masses, exudates, or evidence of obstruction, uvula midline. Mucous membranes moist. Neck: Trachea midline, no thyromegaly or masses palpated, and no cervical lymphadenopathy. Supple, full range of motion without nuchal rigidity, or vertebral point tenderness. No Meningismus. Chest/axilla: Normal chest wall appearance and motion. Nontender with no deformity. No lesions are appreciated. Cardiovascular: Regular rate and rhythm with a normal S1 and S2. No gallops, murmurs, or rubs. Normal PMI, no JVD. No pulse deficits. Respiratory: Lungs have equal breath sounds bilaterally, clear to auscultation and percussion. No rales, rhonchi or wheezes noted. No increased work of breathing, no retractions or nasal flaring. Abdomen/GI: Soft, non-tender, with normal bowel sounds. No distension or tympany. No guarding or rebound. No evidence of tenderness throughout. Back: No spinal tenderness. No costovertebral tenderness. Full range of motion. Skin: Warm, dry with normal turgor. Normal color with no rashes, no lesions, and no evidence of cellulitis. MS/ Extremity: Pulses equal, no cyanosis. Neurovascular intact. Full, normal range of motion. Neuro: Awake and alert, GCS 15, oriented to person, place, time, and situation. Cranial nerves II-XII grossly intact. Motor strength 5/5 in all extremities. Sensory grossly intact. Cerebellar exam normal. Normal gait. Psych: Awake, alert, with orientation to person, place and time. Behavior, mood, and affect are within normal limits. 12:45 Head/face: Noted is swelling, tenderness, that is moderate, of the chin and left jaw. Vital Signs: 11:26 BP 152 / 77; Pulse 69; Resp 20; Temp 98.3; Pulse Ox 98% on R/A; Weight 127.01 kg; hb Height 5 ft. 11 in. (180.34 cm); Pain 4/10; 12:31 BP 115 / 71; Pulse 72; Resp 20; Pulse Ox 100% ; mb9 13:07 BP 139 / 63; Pulse 62; Resp 18; Pulse Ox 98% on R/A; mb9 14:29 BP 113 / 52; Pulse 88; Resp 20; Pulse Ox 99% ; mb9 11:26 Body Mass Index 39.05 (127.01 kg, 180.34 cm) hb MDM: 11:29 Patient medically screened. [facility] 12:48 Differential diagnosis: Herpes Zoster Neck Abrasion Neck Contusion. Data reviewed: [facility] vital signs, nurses notes, lab test result(s), EKG, radiologic studies. Consideration of Admission/Observation Patient was admitted/placed on observation. Escalation of care including admission/observation considered. I considered the following discharge prescriptions or medication management in the emergency department Medications were administered in the Emergency Department. See MAR. Test considered but Not performed: MRI: NO MRI NECK. Historians other than the Patient: NONE. External Records Reviewed: Outpatient record: FROM DR Annie TOMLINSON. Care significantly affected by the following chronic conditions: NONE. Counseling: I had a detailed discussion with the patient and/or guardian regarding: the historical points, exam findings, and any diagnostic results supporting the discharge/admit diagnosis, lab results, radiology results, the need for outpatient follow up, for definitive care, an oral maxilofacial specialist. 14:16 ED course: DR TOMLINSON AGREED WILL SEE Tuesday. [facility] 04/30 11:36 Order name: CBC with Diff; Complete Time: 12:25 [facility] 04/30 11:36 Order name: Comprehensive Metabolic Panel; Complete Time: 12:45 [facility] 04/30 11:36 Order name: CT Soft Tissue Neck W/contr; Complete Time: 13:22 [facility] 04/30 11:38 Order name: IV Saline Lock; Complete Time: 12:11 mb9 Administered Medications: 12:11 Drug: NS 0.9% 1000 ml Route: IV; Rate: 125 ml/hr; Site: left wrist; mb9 12:45 Drug: Rocephin (cefTRIAXone) 1 grams Route: IV; Rate: per protocol; Site: left wrist; jl7 13:44 Follow up: Response: No adverse reaction; IV Status: Completed infusion mb9 12:45 Drug: NS 0.9% 500 ml Route: IV; Rate: bolus; Site: left wrist; jl7 14:28 Follow up: Response: No adverse reaction mb9 12:50 Drug: morphine 4 mg Route: IVP; Infused Over: 4 mins; Site: left wrist; jl7 12:50 Drug: Zofran (Ondansetron) 4 mg Route: IVP; Site: left wrist; jl7 13:44 Drug: Clindamycin 900 mg Route: IVPB; Infused Over: 30 mins; Site: left hand; mb9 14:17 Follow up: Response: No adverse reaction; IV Status: Completed infusion mb9 14:17 Drug: Rocephin (cefTRIAXone) 1 grams Route: IV; Rate: per protocol; Site: left hand; mb9 14:28 Follow up: Response: No adverse reaction; IV Status: Completed infusion mb9 Disposition Summary: 04/30/22 14:16 Discharge Ordered Location: Home brianne Problem: new brianne Symptoms: have improved brianne Condition: Stable brianne Diagnosis - Dental root caries - 1.1 CM SUBPERIOSTEAL ABSCESS brianne - Dental caries, unspecified brianne Followup: brianne - With: - When: 2 - 3 days - Reason: Recheck today's complaints, Continuance of care, Re-evaluation by your physician Discharge Instructions: - Discharge Summary Sheet brianne - Dental Caries, Adult brianne - Dental Pain brianne - Dental Pain, [id number] brianne - Diet and Dental Disease brianne Forms: - Medication Reconciliation Form brianne - Thank You Letter brianne - Antibiotic Education brianne - Prescription Opioid Use brianne Prescriptions: - Clindamycin HCl 300 mg Oral Capsule - take 1 capsule by ORAL route every 6 hours for 7 days; 28 capsule; Refills: 0, brianne Product Selection Permitted - Tylenol-Codeine #3 300 mg-30 mg Oral - take 2 tablet by ORAL route every 4-6 hours; 20 tablet; Refills: 0, Product brianne Selection Permitted Signatures: Dispatcher [employer] Naresh Rushing MD MD cha Baxter, Heather, RN RN hb Gianni Ku RN RN jl7 Georgie, Mabel Yeager, RN RN mb9
[2022-04-30 14:50] VITALS: TEMP 98.3
[2022-04-30 15:12] VITALS: BP 113/52; O2SAT 99
== END 2022-04-30 14:30 | disposition home or self-care (01) ==
LOC: ER 11:20
DX: K02.7 Dental root caries (principal); K02.9 Dental caries, unspecified
CPT/HCPCS: 85025; 36415; 80053; 70491; 99284; Q9967; J7030 ×2; J2405